=== PATIENT | female | born 1940 | race Caucasian/White ===

== ENCOUNTER 2016-05-15 10:08 | Inpatient (IN) | payer MEDICARE ==
[2016-05-15] VITALS (9 sets, daily range): BP systolic 124–148; BP diastolic 51–73; PULSE 62–81; RESP 10–18; O2SAT 92–100
[~2016-05-15] VITALS: Ht 154.9 cm; Wt 51.4 kg
[~2016-05-15 10:08] MED LIST: ALEN70TA2 PO; ASCO500C6 PO; ASPI-973 PO; ATEN25TA PO; CALC-685 PO; CHOL100045 PO; CYAN500 PO; Clindamycin 600 mg/50 mL D5W IV ONE; GINK120C PO; LISI-567 PO; LORA0.5T PO; Lactated Ringer's 1,000 ML IV ONE; MULT-1073 PO; NITR0.4T SL; PROC-4 PO; SIMV80TA4 PO; ZLP5T PO; [UNRECOGNIZED DRUG - CODE] PO; iron PO
[2016-05-15] MEDS ORDERED: Bupivacaine-MPF 0.5% 30 mL Inj INFILTRATE ONE (12:08)
[2016-05-15] MEDS ORDERED: Lactated Ringer's 500 ML IV PRN (13:38)
[2016-05-15] MEDS ORDERED: Lactated Ringer's 1,000 ML IV SCH (13:38)
--- NOTE | 2016-05-15 13:38 | PCM.HPANE ---
Patient Data Date of Service: May 15, 2016 Surgeon Admitting Provider: Attending Provider:Deshawn Faith MD Primary Care Physician:Kristian Girard MD Other Provider:Hui Will Anesthesia Reason for Visit Right Breast Cancer Ht/WT & BMI Height (Feet): 5 Height (Inches): 1 Weight (Kilograms): 51.4 Body Mass Index 21.00 Allergies Coded Allergies: Adhesives (Verified Allergy, Severe, BLISTERS, 12/27/15) Sulfa (Sulfonamide Antibiotics) (Verified Allergy, Severe, facial swelling , 12/27/15) bupropion (Verified Allergy, Severe, chest pain, 12/27/15) codeine (Verified Allergy, Severe, hives (OK WITH MORPHINE), 12/27/15) latex (Verified Allergy, Unknown, unknown, 12/27/15) nitrofurantoin (Verified Allergy, Unknown, unknown, 12/27/15) Macrolide Antibiotics (Verified Adverse Reaction, Severe, pt only tolerates, 12/27/15) Penicillins (Verified Adverse Reaction, Severe, shaking, 12/27/15) Uncoded Allergies: E-MYCIN ANTIBIOTICS (Adverse Reaction, Severe, pt only tolerates, 12/27/15) Past Anesthesia History Anesthesia History: Denies:: Abnormal Airway, Anesthesia Reactions, Difficult Intubation, Fam Anesthesia Reaction, Fam Malignant Hypertherm, Malignant Hyperthermia Diabetes History Hx Diabetes?: No Current Bedside Blood Glucose: 91 MRSA MRSA: No Medications Blood Thinner: Aspirin Hypertension Medication: Yes Home Meds Incl Beta Gaetano: Yes Date Beta Gaetano Taken: May 15, 2016 Time Beta Gaetano Taken: 0730 Reported Medications Ascorbic Acid (Vitamin C)500 Mg Capsule.er500 Mg PO DAILY 12/27/15 Multivits-Min/FA/Lycopene/Lut (Centrum Silver Tablet)1 Each Tablet1 Each PO DAILY 12/27/15 Aspirin 81 Mg Mflwoi91 Mg PO DAILY Ref 0 12/27/15 Lisinopril 20 Mg Bfjxkk08 Mg PO DAILY Ref 0 12/06/15 Nitroglycerin SL (Nitrostat)0.4 Mg Tab.subl0.4 Mg SL Q5MIN PRN For Chest Pain # 1 BOTTLE 08/13/14 Alendronate Sodium (Fosamax)70 Mg Uxjrae02 Mg PO QW 30 Days Ref 0 08/12/14 Garlic 300 Mg Eodius341 Mg PO DAILY 12/06/13 Ginkgo Biloba Extract (Ginkgo Biloba)120 Mg Uyeaqtq142 Mg PO DAILY 12/06/13 Cholecalciferol (Vitamin D3) (Vitamin D)1,000 Unit Capsule1,000 Unit PO DAILY # 1 BOTTLE Ref 0 12/06/13 Cyanocobalamin (Vitamin B12)1,000 Mcg Tablet1,000 Mcg PO DAILY 12/06/13 [iron] No Conflict Check27 Mg PO DAILY 12/06/13 Calcium Carb&Cit/D3/Phytostrol (Citracal D + Heart Health Tab)1 Each Tablet1 Each PO DAILY 12/06/13 Atenolol 25 Mg Dawlrl45.5 Mg PO DAILY #30 TABLET Ref 0 12/06/13 Simvastatin 80 Mg Pxkhgg64 Mg PO HS 30 Days Ref 0 12/06/13 Discontinued Reported Medications Zolpidem (Ambien)5 Mg Tablet5 Mg PO HS PRN For Insomnia Ref 0 01/19/16 Lorazepam 0.5 Mg Tablet0.5-1 Mg PO HS PRN For Insomnia Ref 0 01/07/16 Prochlorperazine Maleate (Compazine)10 Mg Glztni89 Mg PO q4hrs prn 01/07/16 History History of ENT Problems?: Yes HEENT History: Positive for:: Cataracts (bilateral) Hearing Problem Sinus Problem (current sinus issues during day, post nasal drip) Denies:: Abnormal Airway Difficult Intubation Dysphagia Glaucoma TMJ Denture Type: Full- Upper Full- Lower Hx of Heart Problems?: Yes Cardiovascular History: Positive for:: Chest Pain Heart Murmur (as a child Mod/severe MR per TTE) Hypertension Thrombophlebitis (HX OF LT LE DVT 2008) Denies:: AICD Atrial Fibrillation Cardiac Surgery Congestive Heart Failure Edema Irregular Heartbeat Pacemaker Valvular Heart Disease (echo 11/2015) Hx of Respiratory Problem?: Yes Respiratory History: Positive for:: COPD Pneumonia (quite a while) Denies:: Asthma Chest Surgery Cough Dyspnea (can walk - limited by leg pain) Emphysema Hemoptysis Oxygen Administration Tuberculosis Use of C-PAP Machine Use of Inhalers / NEBS Hx Neurologic Problems?: No Neurological History: Denies:: Alzheimer's Disease CVA Dementia Dizziness Headaches Multiple Sclerosis Parkinson's Disease Seizures Hx of GI Problems?: No Gastrointestinal History: Denies:: Cirrhosis Diverticulitis Gall Bladder Disease Gastroesphageal Reflux Gastrointestinal Bleeding Heartburn Hepatitis Hiatal Hernia Rectal Bleeding Hx of Problems?: Yes Genitourinary History: Positive for:: Kidney Stones (possible in past) Denies:: HX of Hemodialysis Urinary Tract Infection HX of Peritoneal Dialysis: No Female Hx: Positive for:: Problems with Breasts? (right breast ca current admission problem) Denies:: Currently Endometriosis Pelvic Inflammatory Skin History: Denies:: History Skin Disorders? Pressure Ulcers Hx Musculoskeletal Problems?: Yes Musculoskeletal History: Positive for:: Musculoskeletal Trauma (remote hx of orthopedic injury) Osteoarthritis ("little bit I think") Denies:: Back Injury Fibromyalgia Joint Replacement Myasthenia Gravis Hx of Psycho/Social Problems?: No Psycho Social History: Denies:: Anxiety Bipolar Disorder Hx Depression Suicide Attempt Hx Surgeries?: Yes (HYST/OOPH,APPY,RFA RT LEG,BILAT BREAST BX,TONSILS,CATARACTS ,YAG LASERS,EXC ) Hx Any Other Health Problems?: Yes Other History: Positive for:: Cancer (BCC, right breast cancer) Hospitalization Denies:: Endocrine Disease Thyroid Disease History Blood Transfusions: Positive for:: Accept Blood Products? Blood Transfusions Denies:: Blood Transfuse Reaction Hx Diabetes: NoBedside Blood Glucose: 91 Hx Alcohol Use: NoHx Substance Use: No Smoking Status: Current Some Day Smoker Light Tobacco Smoker Have You Smoked inLast 12 mo: Yes (1/2 pack daily) Stop/Bang Treated for Sleep Apnea?: No Do You Have a CPAP Machine?: No P-Blood Pressure: treated: Yes B- Body Mass Index > 35 kg/m2: No A- Age over 50: Yes N- Neck Large Circumference: No G- Gender Male: No SAEED Risk Assessment: Low Risk, <3 Yes Risk Assessment Category Category 1A: Patient has history of documented sleep apnea, and HAS NOT received any narcotic, sedative or anesthesia administration during this stay. Category 1B: Patient has history of documented sleep apnea, and HAS received any narcotic , sedative or anesthesia administration during this stay Category 2: Patient has SUSPECTED Obstructive Sleep Apnea, and HAS received any narcotic , sedative or anesthesia administration during this stay. Category 3: Patient has SUSPECTED Obstructive Sleep Apnea and HAS NOT received narcotic, sedative or anesthesia administration during this stay. Category 4: Outpatient in Procedural Areas with known sleep apnea or who screen positive for High Risk via the STOP/BANG questionnaire. Exam Exam Vital Signs Vital Signs Date Time Temp Pulse Resp B/P Pulse Ox O2 Delivery O2 Flow Rate FiO2 05/15/16 10:24 68 14 139/71 97 Room Air General Appearance: Alert, Oriented X3, Cooperative, No Acute Distress HEENT/AIRWAY: MP 2 (Upper, Lower plate), Neck Movement Lungs: Clear to Auscultation, Normal Air Movement Heart: Exam Unremarkable, Normal S1, Normal S2 (Systolic Murmur II/IV RLSB), Murmur Meds/Labs/Diagnostics Admission Meds Current Medications Lactated Ringer's 1,000 ml @ 120 mls/hr Q8H20M ONCE IV Last administered on 10:22; Start 05/15/16 at 05:00; Stop 05/15/16 at 13:19; Status DC Clindamycin Phosphate/ Dextrose/Premix (Cleocin Inj/IV Premix) 50 ml @ 100 mls/ hr PREOP ONCE IV Last administered on 05/15/16 12:00; Start 05/15/16 at 06:00 ; Stop 05/15/16 at 06:29; Status DC Bupivacaine HCl (Sensorcaine-MPF 0.5% Inj) 30 ml STK-MED ONCE INFILTRATE Last administered on 05/15/16 12:08; Start 05/15/16 at 12:08; Stop 05/15/16 at 12:09 ; Status DC Methylene Blue (Methylene Blue 1% Inj) 10 ml STK-MED ONCE IVPUSH Last administered on 05/15/16 12:31; Start 05/15/16 at 12:31; Stop 05/15/16 at 12:40 ; Status DC Bedside Blood Glucose: 91 Plan Impression Patient chart reviewed, patient interviewed and anesthestic plan with risks, benefits, and alternatives discussed, and informed consent obtained. NPO Status: 05/14/16 1930; ice tea at 0830 05/15/16 ASA Physical Status: ASA3 Severe Disease Anesthetic Plan: GA Bene/Risks/Altern/Consents: Yes HP Complete Prior to Induction: Yes Richy Orourke DO May 15, 2016 13:38
[2016-05-15] MEDS ORDERED: HYDROmorphone 1 mg/mL Inj IVPUSH PRN ×2 (13:40→14:20)
[2016-05-15] MEDS ORDERED: fentaNYL-PF 50 mCg/mL 2 mL Inj IVPUSH PRN (13:40)
[2016-05-15] MEDS ORDERED: Atropine 0.4 mg/mL Inj IVPUSH PRN (13:40)
[2016-05-15] MEDS ORDERED: Phenylephrine 10,000 mCg/mL Inj IVPUSH PRN (13:40)
[2016-05-15] MEDS ORDERED: Ondansetron 2 mg/mL 2 mL Inj IVPUSH PRN ×2 (13:40→14:20)
[2016-05-15] MEDS ORDERED: Dexamethasone 4 mg/mL Inj IVPUSH PRN (13:40)
[2016-05-15] MEDS ORDERED: MetoCLOpramide 5 mg/mL 2 mL Inj IVPUSH PRN ×2 (13:40→14:20)
[2016-05-15] MEDS ORDERED: EPHEDrine Sulfate 50 mg/mL Inj IVPUSH PRN (13:40)
[2016-05-15] MEDS ORDERED: Labetalol 5 mg/mL 4 mL Inj IV PRN (13:40)
[2016-05-15] MEDS ORDERED: Acetaminophen IV 1,000 MG in IV Premix 1 EACH IV PRN (14:20)
[2016-05-15] MEDS ORDERED: HYDROcodone-APAP 5-325 mg Tablet PO PRN (14:20)
[2016-05-15] MEDS ORDERED: Ketorolac 15 mg/mL Inj IVPUSH PRN (14:20)
[2016-05-15] MEDS ORDERED: Sodium Biphos-Phos 133 mL Enema RECTAL PRN (14:20)
--- NOTE | 2016-05-15 14:44 | PCM.ANEP1 ---
Post Anesthesia Phase 1 PACU Phase 1 Assessment Date of Service: May 15, 2016 Vital Signs Vital Signs Date Time Temp Pulse Resp B/P Pulse Ox O2 Delivery O2 Flow Rate FiO2 05/15/16 14:30 36.3 63 10 124/56 100 Simple Mask 8 05/15/16 10:24 68 14 139/71 97 Room Air Anesthetic Administered: GA Level of Alertness: Drowsy, not talking ARROYO's with Equal Strength: Yes Pain: No Nausea or Vomiting: No Oxygen Delivery: Simple Mask (6l) Lungs: Clear to Auscultation, Normal Air Movement Dermatome Level: Full Sensation Richy Orourke DO May 15, 2016 14:44
[2016-05-15] MEDS ORDERED: Dexamethasone 4 mg/mL Inj ONE (15:26)
[2016-05-15] MEDS ORDERED: Neostigmine 1 mg/mL 5 mL Inj ONE (15:26)
[2016-05-15] MEDS ORDERED: Rocuronium 10 mg/mL 5 mL Inj ONE (15:26)
[2016-05-15] MEDS ORDERED: Ondansetron 2 mg/mL 2 mL Inj ONE (15:26)
[2016-05-15] MEDS ORDERED: fentaNYL-PF 50 mCg/mL 2 mL Inj ONE (15:26)
[2016-05-15] MEDS ORDERED: Glycopyrrolate 0.2 mg/mL 5 mL Inj ONE (15:26)
[2016-05-15] MEDS ORDERED: Propofol 10,000 mCg/mL 20 mL Inj ONE (15:26)
[2016-05-15] MEDS: Dextrose 5% 0.9% NaCl 1,000 ML IV SCH (15:28)
--- NOTE | 2016-05-15 15:34 | NUR ---
ADMIT TO [facility]SC Patient arrived to rm 1019 on OR [facility], transferred over to hospital bed with 3 person assist via slide board. Patient is awake and alert, able to answer questions. SCD to left leg, BP done on right leg. Bilateral chest incisions well approximated with dermabond. 3 RENAY drains present, labeled them #1-3. Denies pain. IV line patent and IV's infusing. Ice tea given to patient. Denies nausea. Continue to monitor.
--- NOTE | 2016-05-15 15:51 | PCM.ANEP2 ---
Post Anesthesia Evaluation ASA/CMS Post Anesthesia Date of Service: May 15, 2016 VS in Patient's Normal Range?: Yes Resp Stable; Airway Patent?: Yes CV Function & Hydration Stable: Yes Mental Status Recovered?: Yes Pain control Satisfactory?: Yes N/V Control Satisfactory?: Yes Richy Orourke DO May 15, 2016 15:51
[2016-05-16 00:38] VITALS: BP 126/61; PULSE 84; RESP 20; O2SAT 93
--- NOTE | 2016-05-16 01:06 | OP ---
[address] [address] OPERATIVE REPORT PATIENT: BLANE CARRILLO : 1940 MR#: [id number] ADMIT: 05/15/2016 JOB ID: [id number] DATE OF SURGERY: 05/15/2016 PREOPERATIVE DIAGNOSIS(ES): Stage III right breast cancer. POSTOPERATIVE DIAGNOSIS(ES): Stage III right breast cancer. PROCEDURE: 1. Left simple mastectomy. 2. Right modified radical mastectomy. 3. Injection for reverse axillary lymph node mapping. SURGEON: Deshawn Faith MD. POOL MANAGER: eLna Anguiano PA-C. INDICATIONS: A 76-year-old female with stage III right breast cancer. She received neoadjuvant chemotherapy, which she has completed. She had post neoadjuvant biopsy of her lymph nodes which showed two positive nodes, and after discussing options with the patient, and at her request, she elected to have a right modified radical mastectomy and simultaneous left simple mastectomy. FINDINGS: There was no gross evidence of tumor in either breast. There was no gross abnormal right axillary nodes. No nodes were identified with methylene blue injection. DESCRIPTION OF PROCEDURE: At the beginning and end of the operation, the SCOAP checklist was completed. A general endotracheal anesthetic was induced. Both breasts and axilla and her right upper extremity were prepped with ChloraPrep and draped in usual fashion. She did receive preoperative antibiotics with clindamycin. The incisions were designed and every attempt to make them symmetric was done with careful measurements. The right simple mastectomy was done first. The superior, medial, inferior and lateral flaps were created using cautery and then the breast was dissected off of the pectoralis major. Perforators from the internal mammary artery were cauterized. Sutures were placed into the breast tissue for margin orientation. A 19-Iranian Hemaduct drain was placed through a separate stab wound, secured with 2-0 nylon. The skin was then closed with running subcuticular 4-0 Vicryl. While the skin was being closed, I injected 2 cc of methylene blue in the medial right upper arm, massaged it, and elevated the arm. This process went on for about 10 minutes while the left breast wound was closed. The skin incision was then made and then the superior, medial, inferior and lateral flaps were created with cautery, and dissection was carried down to the chest wall. The breast was dissected off the pectoralis major. Identifying the lateral margins of the pectoralis major and minor I followed those out into the axilla and also continued to dissect out laterally and superficially into the axilla. The axillary vein was identified. The long thoracic nerve was identified. I actually did not identify the thoracodorsal nerve. As stated above, there was no evidence of metastases. Using the LigaSure, I divided the axillary tissue and it was dissected free, and was submitted together with the breast tissue. Sutures were placed in the right breast and axillary tissue for orientation. Hemostasis in the wound was ensured. The wound was irrigated with saline. Two 19-Iranian Hemaduct drains were placed through separate stab wound, secured with 2-0 nylon. The skin was closed with running subcuticular 4-0 Vicryl. Dermabond was placed to both incisions. Estimated blood loss 25 cc. No apparent complications. The final sponge, needle and instrument counts were announced as correct and she was returned to recovery in stable condition. Critical assistance was provided by Lena Anguiano PA-C.
[2016-05-16] MEDS: Dextrose 5% 0.9% NaCl 1,000 ML IV SCH (04:56)
[2016-05-16 05:05] VITALS: BP 143/59; PULSE 81; RESP 20; O2SAT 94
[2016-05-16 06:44] LABS: Mean Corpuscular Hemoglobin 28.8 pg (27.0-35.0); Mean Corpuscular Volume 89.4 fL (81-100)
--- NOTE | 2016-05-16 07:20 | NUR ---
Activity Pt ambulates to BR this shift without complications. 3 drains are intact, dressings CDI. Pt reports pain relief from toradol, IV apap given as well. IVF infusing D5NS at 75 ml/h. Needs UA sent- missed hat this shift. Bruise noted to R underarm- r/t dye and lymph dissection. SCD on bilaterally, BP in RLE only. Care continues
--- NOTE | 2016-05-16 09:20 | PROG NOTE ---
[address] [address] PROGRESS NOTE PATIENT: BLANE CARRILLO : 1940 MR#: [id number] ADMIT: 05/15/2016 JOB ID: [id number] DATE: 05/16/2016 SUBJECTIVE: Postoperative day one following bilateral mastectomy, simple on the left and modified radical on the right. I did reverse axillary mapping without identification of any nodes. Her primary complaint is the injection site of the dye but does complaints are actually minimal. She has minimal to no pain on her chest wall. PHYSICAL EXAMINATION: Alert, in no distress. Temperature 36.8, brachial blood pressure 143/59, pulse 81, respiratory rate 20, O2 sat on room air 94%. Her incisions are healing well, look very symmetric. Shon-Gracia drains show serosanguineous fluid, each putting out about 20 cc the last 8 hours. LABORATORY RESULTS: White count 5.7, hematocrit 34.5. Electrolytes are normal. Glucose 143. IMPRESSION: Doing well. PLAN: 1. Stop IV Tylenol. 2. Order oral Tylenol. 3. Discontinue IV. 4. Physical therapy evaluation and instruction today. 5. Possible discharge to home later today.
[2016-05-16 12:41] VITALS: BP 159/76; PULSE 72; RESP 16; O2SAT 99
--- NOTE | 2016-05-16 13:41 | PCM.PNSURG ---
Subjective Date of Service: May 16, 2016 Date of Service: May 16, 2016 Visit Information: Reason for Visit Right Breast Cancer Surgery/Surgery Date Post-Op Day # Date of Admission: May 15, 2016 at 15:25 Hospital Day # Subjective: Patient was seen in surgical follow-up, POD#1 s/p Right MRM with axillary dissection and left simple mastectomy. She is doing well and was seen by Dr. Faith earlier this AM. She has since worked with PT and she and her daughter feel that she is ready for discharge to home. Pain meds were written for by Dr. Faith this AM. I discussed discharge with pt and daughter and answered questions. Postop General: No Complaints Gastrointestinal: Tolerating Oral Feedings Pain Management: Good Pain Control Objective Objective pleasant elderly woman in NAD with daughter at bedside Vital Sign- Last 8 Hours Date Time Temp Pulse Resp B/P Pulse Ox O2 Delivery O2 Flow Rate FiO2 05/16/16 12:41 37.3 72 16 159/76 99 Room Air Intake and Output- Last 8 Hour 05/16/16 Cumulative From/Thru 07:00 05/12/16 10:51 - 05/16/16 06:38 Intake Total 1721 ml 3318 ml Output Total 270 ml 625 ml Balance 1451 ml 2693 ml Intake Oral 700 ml 1100 ml IV Total 1021 ml 2218 ml Output Urine Total 200 ml 450 ml Drainage Total 70 ml 150 ml Estimated Blood Loss 25 ml # Voids 3 3 General: Alert, Oriented X3, Cooperative, No Acute Distress Heart: Regular Rate/Rhythm Chest: L chest - mastectomy incision looks good with dermabond in place, some expectant ecchymosis, drain in place - serosang drainage, <30 ml thus far R chest - incision looks good without erythema, some ecchymosis, [address] with serosang drainage noted - <30ml thus far Result Diagram: 05/16/16 0625 05/16/16 0625 Assessment & Plan Impression 76 yo POD 1 s/p right MR mastectomy and axillary dissection and simple left mastectomy who is doing well and ready for discharge to home. Problems: Plan D/C home Encourage PT exercises at home Nurse teaching for drains at home F/u with Dr. Faith in 7-10 days or when drains are putting out <30ml/24hrs Pain meds PRN Pain Management: Kari Helton PAC May 16, 2016 13:41
--- NOTE | 2016-05-16 13:47 | PCM.DISURG ---
Surgical Discharge Instruction Date of Service May 16, 2016 Dates of Hospitalization Date of Hospital Admission May 15, 2016 at 15:25 Providers Admitting Physician: Deshawn Faith MD Primary Care Physician: Kristian Girard MD Attending Physician: Deshawn Faith MD Diet Discharge Diet: No restrictions Activity Discharge Activity-General: Try not to overdue, No driving while taking narcotic, Other (PLEASE REVIEW PT EXCERCISES AND LIMITATIONS FROM CONSULTATION) Dressing and Incisional Care Dressing Care: Keep dressing clean, dry & intact, Change soiled dressing, Remove dressing in (2-3 days, may reapply dressing around drain if needed; Dermabound over surgical insicion will eventually peel off - avoid pulling it off) Hygiene: May shower (pat incision dry after), DO NOT soak incision under water Additional Instructions Discharge Instructions Call office with any questions for concerns, Follow Up Plan Follow-up Provider (F9): Deshawn Faith MD Follow-up appointment: Days (7-10) Call your provider for: Fever, Chills, Shortness of breath, Wound redness, Increasing wound pain, Warmth to touch, Discharge @ incision, pus discharge Kari Mcdonough PAC May 16, 2016 13:47
--- NOTE | 2016-05-16 16:11 | NUR ---
Social Work: Initial Assessment/Discharge Data: See Initial Assessment. Pt is a 76 year old female admitted 05/15/16 for right breast cancer per H&P. Pt's insurance is Medicare and [employer] [place]. Patient is in the process of switching PCPs. EMR reviewed. SW met with pt at bedside to discuss discharge planning, SW role explained. Pt is alert and oriented x3. Pt resides home alone in [place] where she remains independent with her ADLs. Pt does not use any DME and does drive. Pt has orthopaedic technologist with HH or SNF. PT cleared pt for home, no needs. Pt has supplies for wound dressing, confident in her ability to manage this. Pt has DPOA/Advance Directive on file. DPOA is Agueda Godinez [phone]. Pt's daughter Agueda to provide transport at discharge. No discharge needs. Assessment: Pt who is independent at base. Plan: Pt to discharge home today with daughter to transport. No anticipated discharge needs. Pt to manage own wound care. All updated and agreeable to plan. JESSEE Lamb Addendum: 05/16/16 at 1620 by DUSTY RODRIGUEZ SS Amended: Links added.
--- NOTE | 2016-05-16 16:22 | NUR ---
spiritual care: pt request conversational visit. pt in good spirits, antcipating discharge. dtr in room, supportive. pt shared personal history, coping and hopes that accompany her through the last of cancer treatment. pt explored sources of her strength/resiliency including family, goals, including love of country western music and dancing as well as her blaise. pt participated in prayer.
--- NOTE | 2016-05-16 18:43 | NUR ---
Pt D/C'd Pt D/C'd home via wheelchair with daughter at 1545. Hard copy of prescription with pt, all pt belongings removed from room by pt daughter. Wound care and RENAY drain instructions/demonstration given to pt and daughter, pt returned demonstration. Pt sent with wound care supplies and verbalized/signed understanding of discharge information and follow up care. Pt stated she had no pain upon time of departure. IV D/C'd intact.
--- NOTE | 2016-05-18 13:26 | PATH ---
SURGICAL PATHOLOGY Attending Physician:Luis Chaparro CASE STATUS: Signed Out PATIENT NAME: BLANE CARRILLO PID: [id number] : 1940 DATE COLLECTED:05/15/2016 22:36 SPECIMEN: 1: Breast, Simple Mastectomy (w/o lymph nodes) 2: Breast, Modified Radical Mastectomy (including lymph nodes) CLINICAL HISTORY: RIGHT BREAST CANCER 1). LEFT BREAST, OUT 12:55 TIF 13:02, SHORT STITCH SUPERIOR, LONG LATERAL 2). RIGHT BREAST OUT 14:03 TIF?, SHORT STITCH INFERIOR, LONG STITCH AXILLARY TAIL FINAL DIAGNOSIS: 1.LEFT SIMPLE MASTECTOMY SPECIMEN: NEGATIVE FOR MALIGNANCY AND SIGNIFICANT ATYPIA. 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 (SEE SURGICAL PATHOLOGY CANCER CASE SUMMARY BELOW): ICD10 CODEC50.119 CAP CANCER CASE SUMMARY Ductal carcinoma in situ of the breast: Procedure: RADICAL MASTECTOMY Lymph node sampling: AXILLARY DISSECTION, INCLUDING BLUE-STAINED APPARENT SENTINEL LYMPH NODE Specimen laterality: RIGHT Tumor site: 6 O' CLOCK Size (Extent) of DCIS: 1.0 CM MEASURED ON THE SLIDE Number of blocks with DCIS: TWO Histologic type: DUCTAL CARCINOMA IN SITU Architectural patterns: COMEDO AND CRIBRIFORM Nuclear grade: 3, HIGH Necrosis: PRESENT, CENTRAL Microcalicifications: PRESENT IN DCIS AND IN NON-NEOPLASTIC TISSUE Margins: ALL MARGINS GREATER THAN 1.0 CM Treatment effect: Response to Presurgical Therapy: NO RESIDUAL INVASIVE CARCINOMA IDENTIFIED (SEE PREVIOUS NEEDLE BIOPSY ([phone]) Lymph nodes Total number of nodes examined: 15 (SENTINEL AND NON-SENTINEL) Number of sentinel nodes examined: 1 Lymph Node Involvement: Number of lymph nodes with macrometastases: 0 Number of lymph nodes with micrometastases: 3, THE SIZE OF THE LARGEST DEPOSIT IS 1 MM Extranodal Extension: NOT IDENTIFIED Method of Evaluation of [place] Lymph Node: H&E SERIAL SECTIONS PATHOLOGIC STAGING: AJCC, 7th ed., 2010 PRIMARY TUMOR: ypTis (DCIS) REGIONAL LYMPH NODES: ypN1mi GROSS DESCRIPTION: The specimens are received in formalin, labeled with the patient's name, and sublabeled as the following: (1) left breast, long lat, short sup; (2) right breast & axillary tail. (1) The specimen consists of a left breast (3.2 cm AP, 8.4 cm SI, 12.0 cm ML) partially covered by an ellipse of skin (3.6 cm SI, 11.0 cm ML) with nipple/areola complex (2.5 x 2.3 cm). The axillary tail is absent. The specimen is oriented with 2 black sutures (short-superior, long-lateral). The breast tissue is fibrofatty with no nodules, masses or lesions identified. The skin and nipple/areola complex are cleaning and unremarkable. Ink code: purple-anterior; yellow-posterior; black-superior; orange-inferior; green-medial; blue-lateral. Section code: (1A) nipple; (1B) skin; (1C, 1D) upper outer quadrant; (1E, 1F) lower outer quadrant; (1G, 1H) upper inner quadrant; (1I, 1J) lower inner quadrant. Note: Approximate total fixation time in formalin-30 hours of 30 minutes calculated using a collection date of May 15, 2016 with a time in fixative of 1403. (2) The specimen consists of a right breast (3.0 cm AP, 10.5 cm SI, 10.5 cm ML) partially covered by an ellipse of skin (3.7 cm SI, 10.2 cm ML) with nipple/areola complex (2.5 x 2.5 cm). The axillary tail (9.8 x 5.6 x 2.0 cm) is attached. The specimen is oriented with 2 black sutures (short-inferior, long-axillary tail). The breast tissue is fibrofatty with no nodules, masses or lesions identified. The skin and nipple/areola complex are cleaning and unremarkable. Multiple possible lymph nodes (0.1 x 0.1 x 0.1 cm-1.7 x 1.4 x 0.6 cm) are identified within the axillary tail. The largest lymph node is received partially stained blue. Ink code: purple-anterior; yellow-posterior; black-superior; orange-inferior; green-medial; blue-lateral. Section code: (2A) nipple; (2B) skin; (2C) medial resection margin, perpendicularly sectioned, sales representative meats; (2D-2K) breast tissue, serially sectioned and submitted ML, sales representative meats; (2M) lateral resection margin, perpendicularly sectioned, sales representative meats; (2N) multiple intact lymph nodes ; (2O-2R) one lymph node in each cassette, bisected; (2S-2T) one blue stained lymph node, serially sectioned. Note: Approximate total fixation time in formalin-29 hours and 30 minutes calculated using a collection date of May 15, 2016 with a collection time of 1403. 05/16/16 VALERIE Additional sections: (2U-2GG) breast tissue, sales representative meats, from, thje 6 0' clock position. 05/17/16 VALERIE MICRO DESCRIPTION: See diagnosis. ICD-9 CODES: CPT CODES: 1: 56745 2: 58916 Electronically Signed Out Butch Sanchez MD [facility] [address], [place] [address] Technical component performed at [facility], [facility] [address], [place], [address]
--- NOTE | 2016-06-13 08:11 | PCM.DC.SUR ---
Discharge Summary Date of Hospital Admission: May 15, 2016 at 15:25 Date of Operation(s): 05/15/2016 Date of Discharge: 05/16/2016 Diagnosis at Time of Discharge Stage III Right breast cancer Problems: Operation 1. Left simple mastectomy. 2. Right modified radical mastectomy. 3. Injection for reverse axillary lymph node mapping. Brief History and Physical: Patient a 76-year-old female with stage III right breast cancer. She received neoadjuvant chemotherapy, which she has completed. She had post neoadjuvant biopsy of her lymph nodes which showed two positive nodes, and after discussing options with the patient, and at her request, she elected to have a right modified radical mastectomy and simultaneous left simple mastectomy. Hospital Course: Patient was admitted and underwent the above mentioned operation without complication. On post op day 1, she was doing well, had worked with Physical Therapy, was given instructions on drain care management (with her daughter) and was felt to be ready for discharge to home with follow-up in the surgery department in 7-10 days. Her pain was well controlled with minimal narcotics. Her vital signs were stable and she was voiding without issues. She was medically and surgically stable and ready for discharge to home without her daughter. Pathology: 1.LEFT SIMPLE MASTECTOMY SPECIMEN: NEGATIVE FOR MALIGNANCY AND SIGNIFICANT ATYPIA. 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 (SEE SURGICAL PATHOLOGY Disposition: Discharge to home with her daughter Follow-up Plan: Follow-up with Kari Mcdonough PA-C in 7-10 days ([iron]) 27 MG PO DAILY (Reported) Alendronate Sodium (Fosamax) 70 Mg Tablet 70 MG PO QW (Reported) Ascorbic Acid (Vitamin C) 500 Mg Capsule.er 500 MG PO DAILY (Reported) Aspirin (Aspirin) 81 Mg Tablet 81 MG PO DAILY (Reported) Atenolol (Atenolol) 25 Mg Tablet 12.5 MG PO DAILY (Reported) Calcium Carb&Cit/D3/Phytostrol (Citracal D + Heart Health Tab) 1 Each Tablet 1 EACH PO DAILY (Reported) Cholecalciferol (Vitamin D3) (Vitamin D) 1,000 Unit Capsule 1,000 UNIT PO DAILY (Reported) Cyanocobalamin (Vitamin B12) 1,000 Mcg Tablet 1,000 MCG PO DAILY (Reported) Garlic (Garlic) 300 Mg Tablet 300 MG PO DAILY (Reported) Ginkgo Biloba Extract (Ginkgo Biloba) 120 Mg Capsule 120 MG PO DAILY (Reported) Lisinopril (Lisinopril) 20 Mg Tablet 20 MG PO DAILY (Reported) Multivits-Min/FA/Lycopene/Lut (Centrum Silver Tablet) 1 Each Tablet 1 EACH PO DAILY (Reported) Nitroglycerin SL (Nitrostat) 0.4 Mg Tab.subl 0.4 MG SL Q5MIN PRN PRN For Chest Pain (Reported) Simvastatin (Simvastatin) 80 Mg Tablet 80 MG PO HS (Reported) Kari Mcdonough PAC Jun 13, 2016 08:11
[2016-06-15] MEDS ORDERED: LORA0.5T PO (16:33)
[2016-08-25] MEDS ORDERED: [UNRECOGNIZED DRUG - CODE] (08:52)
[2016-08-25] MEDS ORDERED: TURKEY TAIL (08:53)
== END 2016-05-16 14:03 | disposition home or self-care (01) | DRG 583 ==
LOC: SAS 10:08 → OSC 15:25
PROVIDERS: ADMIT Surgery; ATTEND Surgery
PROC: 0HTT0ZZ Resection of Right Breast, Open Approach (ICD-10-PCS; 2016-05-15)
PROC: 07T50ZZ Resection of Right Axillary Lymphatic, Open Approach (ICD-10-PCS; 2016-05-15)
PROC: 0HTU0ZZ Resection of Left Breast, Open Approach (ICD-10-PCS; principal; 2016-05-15 12:30)
DX: C50.911 Malignant neoplasm of unspecified site of right female breast (principal); F17.200 Nicotine dependence, unspecified, uncomplicated; I10 Essential (primary) hypertension; Z79.82 Long term (current) use of aspirin

== ENCOUNTER 2016-06-16 10:34 | Day surgery (SDC) | payer MEDICARE ==
[~2016-06-16] VITALS: Ht 154.9 cm; Wt 53.0 kg
[~2016-06-16 10:34] MED LIST changes: +0.9% Sodium Chloride 1,000 ML IV SCH; -Clindamycin 600 mg/50 mL D5W IV ONE; -Lactated Ringer's 1,000 ML IV ONE; -PROC-4 PO; +Sodium Chloride LOK Flush 10 mL Syringe IV PRN; -ZLP5T PO; +fentaNYL-PF 50 mCg/mL 2 mL Inj IVPUSH PRN
[2016-06-16] MEDS ORDERED: DOXY100C2 PO (11:06)
[2016-06-16 11:09] VITALS: BP 121/80; PULSE 75; RESP 17; O2SAT 98
[2016-06-16 12:17] VITALS: BP 102/47; PULSE 77; RESP 16; O2SAT 96
[2016-06-16 12:27] VITALS: BP 112/51; PULSE 74; RESP 16; O2SAT 96
[2016-06-16 12:36] VITALS: PULSE 75; RESP 16; O2SAT 96
[2016-06-16 12:46] VITALS: BP 109/51; PULSE 85; RESP 16; O2SAT 95
--- NOTE | 2016-06-16 20:34 | ENDO ---
[address] [address] ENDOSCOPY PROCEDURE PATIENT: BLANE CARRILLO : 1940 MR#: [id number] ADMIT: 06/16/2016 JOB ID: [id number] TYPE OF OPERATION: Colonoscopy. PREOPERATIVE DIAGNOSIS: Blood in the stool. POSTOPERATIVE DIAGNOSIS(ES): 1. Moderate sigmoid diverticulosis. 2. Small internal hemorrhoids. ANESTHESIA: Fentanyl 50 mcg, Versed 2 mg IV administered. COMPLICATIONS: None. BLOOD LOSS: Minimal. DESCRIPTION OF PROCEDURE: After risks and benefits explained to the patient, informed consent was obtained. After anesthesia administered, colonoscope was inserted through the rectum to the cecum. Mucosa carefully examined. Prep of the patient was fair. After the procedure was done, the scope withdrawn, procedure terminated. FINDINGS: Upon inspection of the anus, no masses, hemorrhoids, ulcers, or fissures that were seen. Throughout the entire examination, there was mild sigmoid diverticulosis. No polyps or masses were seen. Retroflexion showed small internal hemorrhoids. IMPRESSION: 1. Small internal hemorrhoids. 2. Moderate sigmoid diverticulosis. RECOMMENDATIONS: High-fiber diet. Follow up in GI clinic as needed.
[2016-08-25] MEDS ORDERED: [UNRECOGNIZED DRUG - CODE] (08:52)
[2016-08-25] MEDS ORDERED: TURKEY TAIL (08:53)
== END 2016-06-16 23:59 | disposition home or self-care (01) ==
LOC: END 10:34
PROVIDERS: ATTEND Internal Medicine Gastroenterology
DX: K64.8 Other hemorrhoids (principal); K57.30 Diverticulosis of large intestine without perforation or abscess without bleeding; I25.10 Atherosclerotic heart disease of native coronary artery without angina pectoris; E78.5 Hyperlipidemia, unspecified; I10 Essential (primary) hypertension; K22.2 Esophageal obstruction; J44.9 Chronic obstructive pulmonary disease, unspecified; Z85.3 Personal history of malignant neoplasm of breast; Z86.010 Personal history of colon polyps; Z79.82 Long term (current) use of aspirin
CPT/HCPCS: 45378; G0500; J7030

== ENCOUNTER 2016-09-08 18:37 | Emergency (ER) | payer MEDICARE ==
[~2016-09-08] VITALS: Ht 154.9 cm; Wt 50.9 kg
[~2016-09-08 18:37] MED LIST changes: -0.9% Sodium Chloride 1,000 ML IV SCH; -NITR0.4T SL; -Sodium Chloride LOK Flush 10 mL Syringe IV PRN; +TURKEY TAIL; +[UNRECOGNIZED DRUG - CODE]; -fentaNYL-PF 50 mCg/mL 2 mL Inj IVPUSH PRN
[2016-09-08 18:40] VITALS: BP 139/69; PULSE 78; RESP 16; O2SAT 99
[2016-09-08 19:36] LABS: BASOPHILS % (AUTO) 0 % (0-3); EOSINOPHILS % (AUTO) 0.6 % (0-5); MONOCYTES % (AUTO) 6.8 % (4-12); Mean Corpuscular Hemoglobin 29.5 pg (27.0-35.0); Mean Corpuscular Volume 89.9 fL (81-100); NEUTROPHILS % (AUTO) 70.6 % (40-74); Platelet Count 145 bil/L (150-400)
--- NOTE | 2016-09-08 19:42 | ED.REPORT ---
HPI-General Illness Date of Service Sep 08, 2016 ED Provider: Ziyad Valera MD A 76 year old female with a history of hemorrhoid, hypertension, rectal bleed, breast cancer and recent colonoscopy presents to the ED complaining of blood in her stool. The pt noticed bright red blood in the toilet and on the toilet paper when she had a bowel movement this evening. She has not had a bowel movement since and denies abdominal pain, nausea, vomiting, diarrhea, fever or chills. The pt experienced similar symptoms in 05/2016 and had a colonoscopy, which showed internal hemorrhoids. The pt recently began taking a new anti- estrogen medication. Nursing Notes Stated Complaint: BLEEDING DURING BOWEL MOVEMENTS Chief Complaint: General Complaint Nursing Notes Reviewed: Yes Allergies: Coded Allergies: Adhesives (Verified Allergy, Severe, BLISTERS, 09/08/16) Sulfa (Sulfonamide Antibiotics) (Verified Allergy, Severe, facial swelling , 09/08/16) bupropion (Verified Allergy, Severe, chest pain, 09/08/16) codeine (Verified Allergy, Severe, hives (OK WITH MORPHINE), 09/08/16) latex (Verified Allergy, Unknown, unknown, 09/08/16) nitrofurantoin (Verified Allergy, Unknown, unknown, 09/08/16) Macrolide Antibiotics (Verified Adverse Reaction, Severe, pt only tolerates, 09/08/16) Penicillins (Verified Adverse Reaction, Severe, shaking, 09/08/16) Uncoded Allergies: E-MYCIN ANTIBIOTICS (Adverse Reaction, Severe, pt only tolerates, 12/27/15) Scheduled ([iron]) 27 MG PO DAILY Alendronate Sodium (Fosamax) 70 Mg Tablet 70 MG PO QW Ascorbic Acid (Vitamin C) 500 Mg Capsule.er 500 MG PO DAILY Aspirin (Aspirin) 81 Mg Tablet 81 MG PO DAILY Atenolol (Atenolol) 25 Mg Tablet 12.5 MG PO DAILY Calcium Carb&Cit/D3/Phytostrol (Citracal D + Heart Health Tab) 1 Each Tablet 1 EACH PO DAILY Cholecalciferol (Vitamin D3) (Vitamin D) 1,000 Unit Capsule 1,000 UNIT PO DAILY Cyanocobalamin (Vitamin B12) 1,000 Mcg Tablet 1,000 MCG PO DAILY Garlic (Garlic) 300 Mg Tablet 300 MG PO DAILY Ginkgo Biloba Extract (Ginkgo Biloba) 120 Mg Capsule 120 MG PO DAILY Lisinopril (Lisinopril) 20 Mg Tablet 20 MG PO DAILY Multivits-Min/FA/Lycopene/Lut (Centrum Silver Tablet) 1 Each Tablet 1 EACH PO DAILY Simvastatin (Simvastatin) 80 Mg Tablet 80 MG PO HS General Time Seen by MD: 19:42 Chief Complaint Other (Blood in stool) Hx Obtained From: Patient Arrived By: Walk-in Sudden in Onset?: Yes Onset Occurred: 1 - 4 hours ago Recent Healthcare: Recent doctor visit, Recent hospitalization Similar Sx Previous: Yes Past Medical History Past Medical History heart murmur hypertension pneumonia hemorrhoid kidney stones rectal bleed breast cancer Past Surgical History oophorectomy RFA right leg bilateral breast BX Reports: Appendectomy, Cataract surgery, Hysterectomy, Tonsillectomy Smoking History Current Some Day Smoker, Light Tobacco Smoker Social History Other Social History: Good social support Ambulatory Status Independent Review of Systems bright red blood in stool Full Review of Systems Constitutional: Denies: Chills, Fever Respiratory: Denies: Non-productive cough, Shortness of breath Cardiovascular: Denies: Chest pain GI: Denies: Abdominal pain, Diarrhea, Nausea, Vomiting Musculoskeletal: Denies: Back pain, Neck pain Skin: Denies Rash Complete sys rev & neg: except as marked. Physical Exam Constitutional: Well-developed, well-nourished. Not diaphoretic. Head: Normocephalic and atraumatic. Mouth/Throat: Oropharynx is clear and moist. No oropharyngeal exudate. Eyes: EOM are normal. Pupils are equal, round, and reactive to light. Neck: Supple, no tracheal deviation. Cardiovascular: Normal rate, regular rhythm. Equal and intact distal pulses throughout. Pulmonary/Chest: Effort normal and breath sounds normal. No respiratory distress. Abdominal: Soft. No distension. There is no tenderness, rebound, or guarding. Bowel sounds present. Rectum: No external hemorrhoids or active bleeding. Stool in rectal vault. Heme occult positive. Musculoskeletal: Range of motion grossly intact, moving all extremities. No edema or tenderness appreciated. Neurological: AOx3. Grossly nonfocal exam. Strength and sensation intact and equal to bilateral upper and lower extremities. Skin: Warm and dry, no rashes or pallor appreciated. Psychiatric: Appropriate mood and affect. Behavior appears normal. Vital Signs Vital Signs Date Time Temp Pulse Resp B/P Pulse Ox O2 Delivery O2 Flow Rate FiO2 09/08/16 22:12 18 122/53 97 Room Air 09/08/16 18:40 36.5 78 16 139/69 99 Room Air Initial VS: Reviewed Interpretation & Diagnostics Lab Results Interpretation Result Diagram: 09/08/16211909/08/166 Test 09/08/16 19:16 09/08/16 21:20 Neutrophils (%) (Auto) 70.6% (40-74) Lymphocytes (%) (Auto) 21.7% (14-46) Monocytes (%) (Auto) 6.8% (4-12) Eosinophils (%) (Auto) 0.6% (0-5) Basophils (%) (Auto) 0% (0-3) Sodium Level 140mEq/L (134-144) Potassium Level 4.4mEq/L (3.5-5.2) Chloride Level 102mEq/L (97-108) Carbon Dioxide Level 26mmol/L (18-29) Blood Urea Nitrogen 16mg/dL (8-27) Creatinine 0.85mg/dL (0.57-1.00) Estimat Glomerular Filtration Rate 93mL/min (>59) Glucose Level 100mg/dL (60-99) Calcium Level 9.1mg/dL (8.5-10.1) Total Bilirubin 0.4mg/dL (0.0-1.2) Aspartate Amino Transf (AST/SGOT) 25U/L (0-50) Alanine Aminotransferase (ALT/SGPT) 12U/L (0-32) Alkaline Phosphatase 47U/L (25-165) Total Protein 7.0g/dL (6.4-8.4) Albumin 4.2g/dL (3.4-5.0) Hold Hernández Top Tube Received (Received) White Blood Count 3.3th/mm3 (3.8-10.1) Red Blood Count 3.87mil/mm3 (3.90-5.20) Hemoglobin 11.4g/dL (12.0-15.6) Hematocrit 34.8% (35.0-46.0) Mean Corpuscular Volume 89.9fL (81-100) Mean Corpuscular Hemoglobin 29.5pg (27.0-35.0) Mean Corpuscular Hemoglobin Concent 32.8% (32.0-37.0) Red Cell Distribution Width 14.1% (12.3-15.4) Platelet Count 135bil/L (150-400) Re-Eval/Medical Decision Med Decision/Clinical Course Abdominal pain or tenderness. Hemodynamic stable here in the ED. Her hemoglobin does seem to be trending downwards, however she is stable and the changes only minimal. Given this, after discussion with the patient, reasonable to discharge home with careful return precautions, follow-up on Sunday for repeat blood work and follow up with her PCP. Patient agreeable to the plan as stated, no further questions. Source of Hx: Old records Time of Eval: 20:52 Patient Status: Condition improved Re-Evaluation/Progress Note: Pt rechecked, who is comfortable. Further physical exam is performed. The plan for GI consult is discussed. Time of Eval: 22:05 Patient Status: Condition improved Re-Evaluation/Progress Note: Pt rechecked, who is resting. The diagnosis and plan for discharge pending normal labs are discussed. The pt understands and agrees with the plan. All questions are addressed at this time. Consultation #1: Referral / Consult Name: Raymundo Colby MD Call Returned at: 21:14 Note: Consulted with Dr. Colby, GI, regarding pt's case. Dr. Colby recommends repeat CBC and discharge with close follow up if this is stable. Consultation #2: Referral / Consult Name: Raymundo Colby MD Call Returned at: 22:13 Note: Consulted with Dr. Colby, who is updated on the pt's condition. Dr. Colby agrees with the plan for discharge. Counseled Regarding: Diagnosis, Lab results, Need for follow-up, When/why to return to ED Discharge & Departure Primary Impression: Blood in stool Disposition: Home Discharge Condition All VS Reviewed: Yes Condition: Stable Patient Instructions: Hemorrhoids (ED), Rectal Bleeding (ED) Additional Instructions: Thank you for allowing us to be a part of your care. As we discussed, your hemoglobin (blood level) is a little bit lower when we repeated your labs, however given that you're no longer bleeding and you feel fine, I think it's ok for you to go home now. However, please return if you have any more bleeding, you feel lightheaded, or if there's anything else of concern to you. Call to arrange a follow up appointment with your primary care physician on Sunday for further evaluation. Return to the emergency department if you develop any new or worsening symptoms including dizziness, lightheadedness, weakness or worsening bleeding. Referrals: Soraida Cross MD (PCP) Raymundo Colby MD Attestation Portions of this note were transcribed by Zackery Woodson. I, Dr. Valera personally performed the history, physical exam and medical decision-making; I reviewed and confirmed the accuracy of the information in the transcribed note. Signed by: Mahamed Candelaria, 09/08/2016 and 2226. copies to: Raymundo Colby MD; Soraida Cross MD, William B MD Sep 08, 2016 19:42 ZACKERY WOODSON Sep 08, 2016 20:43
[2016-09-08] MEDS ORDERED: levoFLOXacin Inj 750 MG in IV Premix 1 EACH IV ONE (21:25)
[2016-09-08 21:39] LABS: Mean Corpuscular Hemoglobin 29.5 pg (27.0-35.0); Mean Corpuscular Volume 89.9 fL (81-100)
[2016-09-08 22:12] VITALS: BP 122/53; RESP 18; O2SAT 97
== END 2016-09-08 22:24 | disposition home or self-care (01) ==
LOC: SED 18:37
DX: K92.1 Melena (principal); I10 Essential (primary) hypertension; F17.200 Nicotine dependence, unspecified, uncomplicated; Z79.82 Long term (current) use of aspirin; Z88.0 Allergy status to penicillin; Z88.1 Allergy status to other antibiotic agents; Z88.2 Allergy status to sulfonamides; Z88.5 Allergy status to narcotic agent; Z88.8 Allergy status to other drugs, medicaments and biological substances; Z91.040 Latex allergy status; Z91.048 Other nonmedicinal substance allergy status

== ENCOUNTER 2016-09-09 09:17 | Inpatient (IN) | payer MEDICARE ==
[2016-09-09] VITALS (9 sets, daily range): BP systolic 115–152; BP diastolic 56–81; PULSE 14–73; RESP 13–17; O2SAT 95–100
[~2016-09-09] VITALS: Ht 154.9 cm; Wt 50.5 kg
--- NOTE | 2016-09-09 09:48 | ED.REPORT ---
HPI-General Illness Date of Service Sep 09, 2016 ED Provider: Ziyad Valera MD A 76 year old female with a history of hemorrhoids, hypertension, rectal bleeding, breast cancer and recent colonoscopy presents to the ED complaining of persistent blood in her stool that began this morning. Patient reports bright red blood clots in her stool and blood in the toilet. She reports excessive flatulence and recent small BM. She was seen in the ED on 09/08 for identical symptoms. Patient received lab work and was discharged in good condition with plan to follow up with her PCP. She presents today because of continued bleeding. Patient denies any lightheadedness, chest pain, SOB, abdominal pain or changes in symptoms from last night. Nursing Notes Stated Complaint: BLOOD IN STOOL Chief Complaint: Female Abdominal Pain Nursing Notes Reviewed: Yes Allergies: Coded Allergies: Adhesives (Verified Allergy, Severe, BLISTERS, 09/08/16) Sulfa (Sulfonamide Antibiotics) (Verified Allergy, Severe, facial swelling , 09/08/16) bupropion (Verified Allergy, Severe, chest pain, 09/08/16) codeine (Verified Allergy, Severe, hives (OK WITH MORPHINE), 09/08/16) latex (Verified Allergy, Unknown, unknown, 09/08/16) nitrofurantoin (Verified Allergy, Unknown, unknown, 09/08/16) Macrolide Antibiotics (Verified Adverse Reaction, Severe, pt only tolerates, 09/08/16) Penicillins (Verified Adverse Reaction, Severe, shaking, 09/08/16) Uncoded Allergies: E-MYCIN ANTIBIOTICS (Adverse Reaction, Severe, pt only tolerates, 12/27/15) Scheduled ([iron]) 27 MG PO DAILY ([[place]]) 1 GM DAILY Alendronate Sodium (Fosamax) 70 Mg Tablet 70 MG PO QW Ascorbic Acid (Vitamin C) 500 Mg Capsule.er 500 MG PO DAILY Aspirin (Aspirin) 81 Mg Tablet 81 MG PO DAILY Atenolol (Atenolol) 25 Mg Tablet 12.5 MG PO DAILY Calcium Carb&Cit/D3/Phytostrol (Citracal D + Heart Health Tab) 1 Each Tablet 1 EACH PO DAILY Cholecalciferol (Vitamin D3) (Vitamin D) 1,000 Unit Capsule 1,000 UNIT PO DAILY Cyanocobalamin (Vitamin B12) 1,000 Mcg Tablet 1,000 MCG PO DAILY Garlic (Garlic) 300 Mg Tablet 300 MG PO DAILY Ginkgo Biloba Extract (Ginkgo Biloba) 120 Mg Capsule 120 MG PO DAILY Lisinopril (Lisinopril) 20 Mg Tablet 20 MG PO DAILY Multivits-Min/FA/Lycopene/Lut (Centrum Silver Tablet) 1 Each Tablet 1 EACH PO DAILY Simvastatin (Simvastatin) 80 Mg Tablet 80 MG PO HS Scheduled PRN Lorazepam (Lorazepam) 0.5 Mg Tablet 0.5 MG PO TID PRN PRN For Anxiety Miscellaneous Medications ([Maxi-hair]) General Time Seen by MD: 09:28 Chief Complaint Other (Hematochezia) Hx Obtained From: Patient Arrived By: Walk-in Sudden in Onset?: No Onset Occurred: 1 - 4 hours ago Symptom Duration: Since onset Associated with: Denies: Abdominal pain, Chest pain, Shortness of breath Pertinent Negative: Pt denies other symptoms Recent Healthcare: No recent hospitalization, Recent doctor visit Past Medical History Past Medical History 1. heart murmur 2. hypertension 3. pneumonia 4. hemorrhoid 5. kidney stones 6. rectal bleed 7. breast cancer Past Surgical History Oophorectomy RFA right leg bilateral breast BX Reports: Appendectomy, Cataract surgery, Hysterectomy, Tonsillectomy Smoking History Current Some Day Smoker, Light Tobacco Smoker Social History Other Social History: Good social support, Local resident Ambulatory Status Independent Review of Systems Flatulence Small BM Full Review of Systems Respiratory: Denies: Shortness of breath Cardiovascular: Denies: Chest pain GI: Reports: Bloody/tarry stool, Denies: Abdominal pain Neurologic: Denies: Lightheaded Complete sys rev & neg: except as marked. Physical Exam Constitutional: Well-developed, well-nourished. Not diaphoretic. Head: Normocephalic and atraumatic. Mouth/Throat: Oropharynx is clear and moist. No oropharyngeal exudate. Eyes: EOM are normal. Pupils are equal, round, and reactive to light. Neck: Supple, no tracheal deviation. Cardiovascular: Normal rate, regular rhythm. Equal and intact distal pulses throughout. No peripheral edema. Good peripheral pulses. Pulmonary/Chest: Effort normal and breath sounds normal. No respiratory distress. Abdominal: Soft. No distension. There is no tenderness, rebound, or guarding. Bowel sounds present. Rectum: Deferred Musculoskeletal: Range of motion grossly intact, moving all extremities. No edema or tenderness appreciated. Neurological: AOx3. Grossly nonfocal exam. Strength and sensation intact and equal to bilateral upper and lower extremities. Skin: Warm and dry, no rashes or pallor appreciated. Psychiatric: Appropriate mood and affect. Behavior appears normal. Vital Signs Vital Signs Date Time Temp Pulse Resp B/P Pulse Ox O2 Delivery O2 Flow Rate FiO2 09/09/16 09:23 36.6 72 16 125/70 99 Room Air Initial VS: Reviewed Interpretation & Diagnostics Lab Results Interpretation Result Diagram: 09/09/16 1005 09/09/16 1005 Test 09/09/16 10:05 09/09/16 11:00 White Blood Count 2.1th/mm3 (3.8-10.1) Red Blood Count 3.67mil/mm3 (3.90-5.20) Hemoglobin 10.8g/dL (12.0-15.6) Hematocrit 33.0% (35.0-46.0) Mean Corpuscular Volume 89.9fL (81-100) Mean Corpuscular Hemoglobin 29.4pg (27.0-35.0) Mean Corpuscular Hemoglobin Concent 32.7% (32.0-37.0) Red Cell Distribution Width 14.2% (12.3-15.4) Platelet Count 126bil/L (150-400) Neutrophils (%) (Auto) 70.3% (40-74) Lymphocytes (%) (Auto) 20.2% (14-46) Monocytes (%) (Auto) 8.5% (4-12) Eosinophils (%) (Auto) 0.5% (0-5) Basophils (%) (Auto) 0% (0-3) Prothrombin Time 10.4sec (8.1-12.5) Prothromb Time International Ratio 0.97ratio Activated Partial Thromboplast Time 28.0sec (22.8-33.0) Sodium Level 140mEq/L (134-144) Potassium Level 4.1mEq/L (3.5-5.2) Chloride Level 103mEq/L (97-108) Carbon Dioxide Level 26mmol/L (18-29) Blood Urea Nitrogen 19mg/dL (8-27) Creatinine 0.79mg/dL (0.57-1.00) Estimat Glomerular Filtration Rate 101mL/min (>59) Glucose Level 108mg/dL (60-99) Calcium Level 9.0mg/dL (8.5-10.1) Magnesium Level 2.1mg/dL (1.6-2.6) Total Bilirubin 0.4mg/dL (0.0-1.2) Aspartate Amino Transf (AST/SGOT) 21U/L (0-50) Alanine Aminotransferase (ALT/SGPT) 11U/L (0-32) Alkaline Phosphatase 44U/L (25-165) Troponin T 0.010ug/L (0.0-0.011) Total Protein 6.3g/dL (6.4-8.4) Albumin 3.9g/dL (3.4-5.0) Urine Color Yellow (YELLOW) Urine Appearance Slightly cloudy Urine pH 6.5 (5.0-8.0) Urine Specific [place] 1.012 (1.003-1.035) Urine Protein Negativemg/dL (NEG,TRACE) Urine Glucose (UA) Negativemg/dL (NEGATIVE) Urine Ketones Negativemg/dL (NEGATIVE) Urine Occult Blood Negative (NEGATIVE) Urine Nitrite Negative (NEGATIVE) Urine Bilirubin Negative (NEGATIVE) Urine Urobilinogen Normalmg/dL (NORMAL) Urine Leukocyte Esterase Large (NEGATIVE) Urine RBC 0-2/hpf (0-2) Urine WBC >50/hpf (0-5) Urine Epithelial Cells Few/hpf (NONE-MOD) Urine Crystals None seen (NONE SEEN) Urine Bacteria Many/hpf (NONE-FEW) Urine Hyaline Casts None/lpf (NONE) Urine Granular Casts None seen (NONE SEEN) Urine Waxy Casts None seen (NONE SEEN) Urine Red Blood Cell Casts None seen (NONE SEEN) Urine White Blood Cell Casts None seen (NONE SEEN) Urine Mucus None seen (None Seen) Urine Trichomonas None seen (NONE SEEN) Urine Yeast None (NONE SEEN) Urinalysis Comment None Urine Culture Reflexed Indicated ECG Interpretation ECG Interpretation: Sinus Rhythm Rate 64 Possible TWI/ flattening in the inferior leads No STEMI Time: 10:47 Interpreted by: ED physician Re-Eval/Medical Decision Med Decision/Clinical Course 76F seen last night, now back w/ continued bleeding from the bottom. Repeat Hgb here is lower than last night; trend from 12 to 11.4 to 10.8 since last night; down from 13.2 a couple of weeks ago. Discussed w/ both oncology and GI account retention representative ; nothing needed from an oncology perspective at this time - GI to scope this afternoon. HDS here in the ED; no need for transfusion emergently at this time. Patient agreeable to plan, no further questions. Time of Eval: 12:14 Patient Status: Condition improved Re-Evaluation/Progress Note: Pt is informed of her lab results and the intended treatment plan. All questions are addressed. She understands and agrees with the treatment plan to admit. Consultation #1: Referral / Consult Name: Raymundo Colby MD Call Returned at: 11:54 Criminology Professor: Will see patient, Agrees with eval, Agrees with plan Note: GI - agrees to consult on the patient Recommends Golytely and scope today Consultation #2: Referral / Consult Name: Justus Dillard DO Call Returned at: 12:14 Criminology Professor: Will see patient, Agrees with eval, Agrees with plan Note: Oncology Consultation #3: Referral / Consult Name: June Villagran DO Consulted With: Hospitalist Criminology Professor: Will see patient, Agrees with eval, Agrees with plan, Accepts admit Counseled Regarding: Diagnosis, Lab results, Need for admission Discharge & Departure Primary Impression: Acute lower GI bleeding Disposition: ADMITTED TO HOSPITAL Discharge Condition All VS Reviewed: Yes Condition: Stable Referrals: NOPCP (PCP) Mahamed Attestation Portions of this note were transcribed by Aubrey Senior. I, Dr. Valera personally performed the history, physical exam and medical decision-making; I reviewed and confirmed the accuracy of the information in the transcribed note. Signed by: Mahamed Valiente, 09/09/16 1243. Ziyad Valera MD Sep 09, 2016 09:48 AUBREY SENIOR Sep 09, 2016 10:22 Ziyad Valrea MD Sep 09, 2016 09:48 AUBREY SENIOR Sep 09, 2016 10:22
[2016-09-09 10:28] LABS: BASOPHILS % (AUTO) 0 % (0-3); EOSINOPHILS % (AUTO) 0.5 % (0-5); MONOCYTES % (AUTO) 8.5 % (4-12); Mean Corpuscular Hemoglobin 29.4 pg (27.0-35.0); Mean Corpuscular Volume 89.9 fL (81-100); NEUTROPHILS % (AUTO) 70.3 % (40-74); Platelet Count 126 bil/L (150-400)
[2016-09-09 10:43] LABS: INR 0.97 ratio
[2016-09-09 10:53] LABS: TROPONIN T 0.01 ug/L (0.0-0.011)
[2016-09-09 11:04] LABS: Magnesium 2.1 mg/dL (1.6-2.6)
[2016-09-09] MEDS ORDERED: Propofol 10 mg/mL 20 mL Inj ONE (11:15)
[2016-09-09] MEDS ORDERED: PEG/Electrolytes 4,000 mL Solution PO ONE (12:00)
[2016-09-09 12:22] LABS: APPEARANCE,URINE SLIGHTLY CLOUDY (CLEAR,HAZY); COLOR,URINE YELLOW (YELLOW); OCCULT BLOOD,URINE NEGATIVE (NEGATIVE); PH,URINE 6.5 (5.0-8.0); UROBILINOGEN,URINE NORMAL (NORMAL)
[2016-09-09] MEDS ORDERED: Ondansetron 2 mg/mL 2 mL Inj IVPUSH PRN (12:55)
[2016-09-09] MEDS ORDERED: Polyethylene Glycol (PEG) 17 Gm Powder PO PRN (12:55)
[2016-09-09] MEDS ORDERED: Alum-Mag Hydrox-Simeth 30 mL Suspension PO PRN (12:55)
--- NOTE | 2016-09-09 12:58 | PCM.HPMED ---
Subjective Date of Service Sep 09, 2016 Primary Provider: Admitting Physician: Primary Care Physician: Carlos Attending Physician: Admit Status: From the Emergency Department Chief Complaint: Lower GI Bleed History of Present Illness: 76 year old female with a history of hemorrhoids, hypertension, rectal bleeding , breast cancer and recent colonoscopy presents to the ED complaining of persistent blood in her stool that began this morning. Patient reports bright red blood clots in her stool and blood in the toilet. She reports excessive flatulence and recent small BM. She was seen in the ED on 09/08 for identical symptoms. Patient received lab work and was discharged in good condition with plan to follow up with her PCP. She presents today because of continued bleeding. Recent colonoscopy in May showed small internal hemorrhoids and moderate sigmoid diverticulosis. In the ER today her hemoglobin is 10.8 and GI is contacted and they want to perform a colonoscopy tonight and they asked for her to prep, which she is doing in the room. In the ER EKG showed T-wave flattening in inferior leads and no ST elev. labs are remarkable for glucose 126, urine showed large leuk white cells greater than 50, and many bacteria. Urine cultures are pending. Records indicate that L August 2016, showed 55-60% and moderate severe MR and moderate MR that left atrial dilation, mild aortic stenosis. 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 She states that she had chemotherapy prior to mastectomy. Her surgery was then followed by chemo/radiation she has completed all this on the August 09 and now she is on oral medications for maintenance therapy. She says that she has had prior transfusions. She has no nausea, she is not light headed but feeling anxious. The time of this interview patient is sitting on the toilet bowl because she is having to go nonstop. She showed me her stool couple of times and the beginning it was more firm with some bbright red blood, and then later on she did not have any blood. She states that she has had a colonoscopy in May 2016 that only showed internal hemorrhoids. She recalls wiping blood on the toilet paper before but nothing like what she has today Allergies Coded Allergies: Adhesives (Verified Allergy, Severe, BLISTERS, 09/08/16) Sulfa (Sulfonamide Antibiotics) (Verified Allergy, Severe, facial swelling , 09/08/16) bupropion (Verified Allergy, Severe, chest pain, 09/08/16) codeine (Verified Allergy, Severe, hives (OK WITH MORPHINE), 09/08/16) latex (Verified Allergy, Unknown, unknown, 09/08/16) nitrofurantoin (Verified Allergy, Unknown, unknown, 09/08/16) Macrolide Antibiotics (Verified Adverse Reaction, Severe, pt only tolerates, 09/08/16) Penicillins (Verified Adverse Reaction, Severe, shaking, 09/08/16) Uncoded Allergies: E-MYCIN ANTIBIOTICS (Adverse Reaction, Severe, pt only tolerates, 12/27/15) Home Medications Iron, Fosamax, aspirin, atenolol 12.5 mg, vitamin D3, B12, lisinopril, simvastatin PMH Hypertension, hemorrhoids, breast cancer Surgical History L mastectomy, we will affect me, RFA right leg, bilateral breast biopsy, appendectomy, cataracts, history of May, tonsillectomy Family History Father and mother both have heart disease Social History Hx Alcohol Use: No Hx Substance Use: No Hx Tobacco Use: Yes (1/2 pack per day since she was in her 20s) Smoking Status: Current Some Day Smoker, Light Tobacco Smoker Exam Vital Signs Vital Sign - Last Date Time Temp Pulse Resp B/P Pulse Ox O2 Delivery O2 Flow Rate FiO2 09/09/16 12:32 36.8 69 14 129/56 97 Room Air Exam General: NAD sitting up on the toilet seat HEENT: NCAT Eyes: [place] conjunctivae. No ptosis, PERRL Neck: No masses, trachea midline, no thyromegaly Lungs: CTA with normal respiratory effort, no crackles or wheezes CV: RRR, no murmurs/rubs/gallops, normal PMI GI: Soft, non-tender with no hepatosplenomegaly MSK: Normal gait and station, no digital cyanosis Skin: Warm and dry. No rash, lesions or ulcers Psych: A&O X3, with appropriate affect Lab and Diagnostics Result Diagram: 09/09/16 1005 09/09/16 1005 Assessment & Plan 76 yo female with PMH of breast cancer s/p chemo radiation and mastectomy, internal hemorrhoids presenting with sudden onset rectal bleeding. Problem #1 lower GI bleed, POA: Bleeding is improving with colonoscopy prerp -- This could be a hemorrhoids -- Type and screen is done -- H&H every 3 hours -- GI consult, Dr. Pantoja is aware. -- Colonoscopy tonight -- GI prophylaxis with Pepcid IV 20 mg BID Chronic Hypertension,a ctive: She took meds this AM -- Continue lisinopril and atenolol home meds in the AM Hyperlipidemia, chronic active -- Continue simvastatin Breast Cancer s/p chemorad and mastectomy: on maintenance therapy -- Will resume home meds in the AM (herceptin until december and anti-estrogen therapy (tamoxifen?) for 5 years) Tobacco abuse, active, chronic -- She declined a nicotine patch due to allergies to tape Disposition: Patient may be discharged to home if colonoscpy reveals no active bleed. Pain Evaluation: Other (she has no pain) Resuscitation Status: CPR: Attempt Resuscitation (her daughter) Time spent 40 min June Villagran DO Sep 09, 2016 12:58
[2016-09-09] MEDS: 0.9% Sodium Chloride 1,000 ML IV SCH (13:07)
--- NOTE | 2016-09-09 18:50 | NUR ---
Transfer/Endo Pt. was transferred from the ED to room 1009 [facility] at about 1315. Pt. arrived in apparent distress, A&Ox3, ARROYO with general weakness. VS stable will continue to monitor. Pt. on bowel prep for an endoscopy this afternoon at ~2000. Pt. has been NPO since 1800. Stools appear more clear and less bloody. Pt. is bed and denies CP and SOB a this time. Pt. is not on tele. Will continue to monitor.
--- NOTE | 2016-09-09 20:39 | PCM.HPANE ---
Patient Data Surgeon Admitting Provider:June Villagran DO Attending Provider:June Villagran DO Primary Care Physician:Carlos Other Provider: Reason for Visit Lower Gi Bleed LOWER GI BLEED Ht/WT & BMI Height (Feet): 5 Height (Inches): 1.00 Weight (Kilograms): 50.910 Body Mass Index 21.00 Allergies Coded Allergies: Adhesives (Verified Allergy, Severe, BLISTERS, 09/08/16) Sulfa (Sulfonamide Antibiotics) (Verified Allergy, Severe, facial swelling , 09/08/16) bupropion (Verified Allergy, Severe, chest pain, 09/08/16) codeine (Verified Allergy, Severe, hives (OK WITH MORPHINE), 09/08/16) latex (Verified Allergy, Unknown, unknown, 09/08/16) nitrofurantoin (Verified Allergy, Unknown, unknown, 09/08/16) Macrolide Antibiotics (Verified Adverse Reaction, Severe, pt only tolerates, 09/08/16) Penicillins (Verified Adverse Reaction, Severe, shaking, 09/08/16) Uncoded Allergies: E-MYCIN ANTIBIOTICS (Adverse Reaction, Severe, pt only tolerates, 12/27/15) Past Anesthesia History Anesthesia History: Denies:: Abnormal Airway, Anesthesia Reactions, Difficult Intubation, Fam Anesthesia Reaction, Fam Malignant Hypertherm, Malignant Hyperthermia Diabetes History Hx Diabetes?: No MRSA MRSA: No Medications Blood Thinner: Aspirin Hypertension Medication: Yes Home Meds Incl Beta Gaetano: Yes Date Beta Gaetano Taken: Sep 09, 2016 Time Beta Gaetano Taken: 07:00 Reported Medications Ascorbic Acid (Vitamin C)500 Mg Capsule.er500 Mg PO DAILY 12/27/15 Multivits-Min/FA/Lycopene/Lut (Centrum Silver Tablet)1 Each Tablet1 Each PO DAILY 12/27/15 Aspirin 81 Mg Alxlto81 Mg PO DAILY Ref 0 12/27/15 Lisinopril 20 Mg Ptvkem76 Mg PO DAILY Ref 0 12/06/15 Alendronate Sodium (Fosamax)70 Mg Umgavv80 Mg PO QW 30 Days Ref 0 08/12/14 Garlic 300 Mg Gnunxl106 Mg PO DAILY 12/06/13 Ginkgo Biloba Extract (Ginkgo Biloba)120 Mg Lthrwnp800 Mg PO DAILY 12/06/13 Cholecalciferol (Vitamin D3) (Vitamin D)1,000 Unit Capsule1,000 Unit PO DAILY # 1 BOTTLE Ref 0 12/06/13 Cyanocobalamin (Vitamin B12)1,000 Mcg Tablet1,000 Mcg PO DAILY 12/06/13 [iron] No Conflict Check27 Mg PO DAILY 12/06/13 Calcium Carb&Cit/D3/Phytostrol (Citracal D + Heart Health Tab)1 Each Tablet1 Each PO DAILY 12/06/13 Atenolol 25 Mg Kgairx21.5 Mg PO DAILY #30 TABLET Ref 0 12/06/13 Simvastatin 80 Mg Nzcmoy80 Mg PO HS 30 Days Ref 0 12/06/13 Discontinued Reported Medications [[place]] No Conflict Check1 Gm DAILY 08/25/16 [Maxi-hair] No Conflict Check 08/25/16 Lorazepam 0.5 Mg Tablet0.5 Mg PO TID PRN For Anxiety Ref 0 06/15/16 History History of ENT Problems?: Yes HEENT History: Positive for:: Cataracts (surgery 2005) Hearing Problem [place]) Denies:: Abnormal Airway Difficult Intubation Dysphagia Glaucoma Sinus Problem TMJ Denture Type: Full- Upper Full- Lower Teeth Condition: Within Normal Limits Hx of Heart Problems?: Yes Cardiovascular History: Positive for:: Chest Pain Heart Murmur (as a child Mod/severe MR per TTE) Hypertension Thrombophlebitis (Veins removed.) Denies:: AICD Atrial Fibrillation Cardiac Surgery Congestive Heart Failure Edema Irregular Heartbeat Pacemaker Valvular Heart Disease (echo 11/2015) Hx of Respiratory Problem?: Yes Respiratory History: Positive for:: Pneumonia Denies:: Asthma COPD Chest Surgery Cough Dyspnea (can walk - limited by leg pain) Emphysema Hemoptysis Oxygen Administration Tuberculosis Use of C-PAP Machine Hx Neurologic Problems?: No Neurological History: Denies:: Alzheimer's Disease CVA Dementia Dizziness Headaches Multiple Sclerosis Parkinson's Disease Seizures Hx of GI Problems?: No Hx of Problems?: Yes Genitourinary History: Positive for:: Kidney Stones Denies:: HX of Hemodialysis Urinary Tract Infection HX of Peritoneal Dialysis: No Female Hx: Positive for:: Problems with Breasts? (right breast ca ) Denies:: Currently Endometriosis Pelvic Inflammatory Skin History: Denies:: History Skin Disorders? Pressure Ulcers Hx Musculoskeletal Problems?: Yes Musculoskeletal History: Denies:: Back Injury Joint Replacement Musculoskeletal Trauma Hx of Psycho/Social Problems?: No Psycho Social History: Denies:: Anxiety Bipolar Disorder Hx Depression Suicide Attempt Hx Surgeries?: Yes (HYST/OOPH,APPY,RFA RT LEG,BILAT BREAST BX,TONSILS,CATARACTS ,YAG LASERS,EXC ) Hx Any Other Health Problems?: Yes Other History: Positive for:: Cancer (BCC, right breast cancer) Hospitalization (cancer treatments, appendectomy) Denies:: Endocrine Disease Thyroid Disease History Blood Transfusions: Positive for:: Accept Blood Products? Blood Transfusions Denies:: Blood Transfuse Reaction Hx Diabetes: No Hx Alcohol Use: NoHx Substance Use: No Smoking Status: Current Some Day Smoker Light Tobacco Smoker Have You Smoked inLast 12 mo: YesApprox How Many Cigarettes/day: 1/2 pk/day Stop/Bang Treated for Sleep Apnea?: No Do You Have a CPAP Machine?: No S-Snoring: Do You Snore Loudly: No T-Tired: feel tired, fatigued: No O-Obsered: Observed not breath: No P-Blood Pressure: treated: No B- Body Mass Index > 35 kg/m2: No A- Age over 50: Yes N- Neck Large Circumference: No G- Gender Male: No SAEED Total Score: 1 SAEED Risk Assessment: Low Risk, <3 Yes Risk Assessment Category Category 1A: Patient has history of documented sleep apnea, and HAS NOT received any narcotic, sedative or anesthesia administration during this stay. Category 1B: Patient has history of documented sleep apnea, and HAS received any narcotic , sedative or anesthesia administration during this stay Category 2: Patient has SUSPECTED Obstructive Sleep Apnea, and HAS received any narcotic , sedative or anesthesia administration during this stay. Category 3: Patient has SUSPECTED Obstructive Sleep Apnea and HAS NOT received narcotic, sedative or anesthesia administration during this stay. Category 4: Outpatient in Procedural Areas with known sleep apnea or who screen positive for High Risk via the STOP/BANG questionnaire. Exam Exam Vital Signs Vital Signs Date Time Temp Pulse Resp B/P Pulse Ox O2 Delivery O2 Flow Rate FiO2 09/09/16 17:03 36.8 66 15 148/77 100 Room Air 09/09/16 13:29 36.4 70 148/75 99 Room Air 09/09/16 13:19 36.8 69 14 129/56 97 Room Air 09/09/16 12:32 36.8 69 14 129/56 97 Room Air General Appearance: Alert, Oriented X3, Cooperative HEENT/AIRWAY: MP 1 Lungs: Clear to Auscultation Heart: Exam Unremarkable Meds/Labs/Diagnostics Admission Meds Current Medications Polyethylene Glycol/ Electrolytes 4000 ml 4,000 ml ONCE ONCE PO Last administered on 09/09/16 12:33; Start 09/09/16 at 12:00; Stop 09/09/16 at 12:01 ; Status DC Sodium Chloride (Normal Saline) 1,000 ml @ 100 mls/hr Q10H IV Last administered on 09/09/16 13:07; Start 09/09/16 at 12:55 Labs Test 09/09/16 10:05 09/09/16 11:00 09/09/16 16:59 White Blood Count 2.1th/mm3 (3.8-10.1) Red Blood Count 3.67mil/mm3 (3.90-5.20) Mean Corpuscular Volume 89.9fL (81-100) Mean Corpuscular Hemoglobin 29.4pg (27.0-35.0) Mean Corpuscular Hemoglobin Concent 32.7% (32.0-37.0) Red Cell Distribution Width 14.2% (12.3-15.4) Platelet Count 126bil/L (150-400) Neutrophils (%) (Auto) 70.3% (40-74) Lymphocytes (%) (Auto) 20.2% (14-46) Monocytes (%) (Auto) 8.5% (4-12) Eosinophils (%) (Auto) 0.5% (0-5) Basophils (%) (Auto) 0% (0-3) Prothrombin Time 10.4sec (8.1-12.5) Prothromb Time International Ratio 0.97ratio Activated Partial Thromboplast Time 28.0sec (22.8-33.0) Sodium Level 140mEq/L (134-144) Potassium Level 4.1mEq/L (3.5-5.2) Chloride Level 103mEq/L (97-108) Carbon Dioxide Level 26mmol/L (18-29) Blood Urea Nitrogen 19mg/dL (8-27) Creatinine 0.79mg/dL (0.57-1.00) Estimat Glomerular Filtration Rate 101mL/min (>59) Glucose Level 108mg/dL (60-99) Calcium Level 9.0mg/dL (8.5-10.1) Magnesium Level 2.1mg/dL (1.6-2.6) Total Bilirubin 0.4mg/dL (0.0-1.2) Aspartate Amino Transf (AST/SGOT) 21U/L (0-50) Alanine Aminotransferase (ALT/SGPT) 11U/L (0-32) Alkaline Phosphatase 44U/L (25-165) Troponin T 0.010ug/L (0.0-0.011) Total Protein 6.3g/dL (6.4-8.4) Albumin 3.9g/dL (3.4-5.0) Urine Color Yellow (YELLOW) Urine Appearance Slightly cloudy Urine pH 6.5 (5.0-8.0) Urine Specific [place] 1.012 (1.003-1.035) Urine Protein Negativemg/dL (NEG,TRACE) Urine Glucose (UA) Negativemg/dL (NEGATIVE) Urine Ketones Negativemg/dL (NEGATIVE) Urine Occult Blood Negative (NEGATIVE) Urine Nitrite Negative (NEGATIVE) Urine Bilirubin Negative (NEGATIVE) Urine Urobilinogen Normalmg/dL (NORMAL) Urine Leukocyte Esterase Large (NEGATIVE) Urine RBC 0-2/hpf (0-2) Urine WBC >50/hpf (0-5) Urine Epithelial Cells Few/hpf (NONE-MOD) Urine Crystals None seen (NONE SEEN) Urine Bacteria Many/hpf (NONE-FEW) Urine Hyaline Casts None/lpf (NONE) Urine Granular Casts None seen (NONE SEEN) Urine Waxy Casts None seen (NONE SEEN) Urine Red Blood Cell Casts None seen (NONE SEEN) Urine White Blood Cell Casts None seen (NONE SEEN) Urine Mucus None seen (None Seen) Urine Trichomonas None seen (NONE SEEN) Urine Yeast None (NONE SEEN) Urinalysis Comment None Urine Culture Reflexed Indicated Hemoglobin 11.5g/dL (12.0-15.6) Hematocrit 35.1% (35.0-46.0) Plan Impression Patient chart reviewed, patient interviewed and anesthestic plan with risks, benefits, and alternatives discussed, and informed consent obtained. ASA Physical Status: ASA3 Severe Disease Anesthetic Plan: MAC Bene/Risks/Altern/Consents: Yes HP Complete Prior to Induction: Yes Oral Henderson DO Sep 09, 2016 20:10
--- NOTE | 2016-09-09 20:47 | PCM.ANEP1 ---
Post Anesthesia PACU Phase 1 Assessment Vital Signs Vital Signs Date Time Temp Pulse Resp B/P Pulse Ox O2 Delivery O2 Flow Rate FiO2 09/09/16 17:03 36.8 66 15 148/77 100 Room Air 09/09/16 13:29 36.4 70 148/75 99 Room Air 09/09/16 13:19 36.8 69 14 129/56 97 Room Air Anesthetic Administered: GA Level of Alertness: Awake, talking ARROYO's with Equal Strength: Yes Pain: No Nausea or Vomiting: No CV Function & Hydration Stable: Yes Airway Device: Oxygen Delivery: Nasal Cannula Lungs: Clear to Auscultation PACU Phase 2 Assessment Complications: No Follow up Care: N/A Patient Instructions Provided: N/A Oral Henderson DO Sep 09, 2016 20:47
[2016-09-09] MEDS ORDERED: Ciprofloxacin Inj 400 MG in IV Premix 1 EACH IV STA (20:50)
[2016-09-09] MEDS ORDERED: metroNIDAZOLE Inj 500 MG in IV Premix 1 EACH IV STA (20:50)
[2016-09-09] MEDS ORDERED: levoFLOXacin Inj 750 MG in IV Premix 1 EACH IV STA (21:03)
[2016-09-09] MEDS ORDERED: 0.9% Sodium Chloride 250 ML ONE (21:23)
--- NOTE | 2016-09-09 21:30 | PCM.ADCARE ---
Advance Care Planning Note Purpose of Encounter: Establish goals of care in the event of sudden cardiac or resp decompensation Parties in Attendance: Patient, her daughter and Dr. Villagran Decisional Capacity: Good Subjective: Patient is a smoker, cancer survivor, HTN hx in apparent good health otherwise. Objective: 76 yo is an advanced age, unclear benefit of CPR Goals of Care Determinations: We have discussed her health hx and what patient would like if she ever needed CPR and intubation. Explained to them what intubation entails and they are ok with family making the decision for patient if she can not be successfully extubated Plan: Patient wants to be full code CODE STATUS: Full code Time Spent Adv.Care Plannin min Adv. Care Plan Documenation: Documented in H&P June Villagran DO Sep 09, 2016 21:30
--- NOTE | 2016-09-09 22:06 | DRSVH ---
PROCEDURE: CT ABDOMEN AND PELVIS WITHOUT CONTRAST ([id number]) INDICATIONS: rule out perforation in cecum post colonoscopy TECHNIQUE: Noncontrast 5 mm thick sections acquired from the diaphragms to the symphysis. 5 mm coronal and sagi ttal reformats were then performed. For radiation dose reduction, the following was used: automated exposure control, adjustment of mA and/or kV according to patient size. COMPARISON: [facility], CT, CT CHEST ABD PELVIS W CON, 12/13/2015, 15:10. FINDINGS: Image quality: Good ABDOMEN: Lung bases: Lung bases are clear of acute infiltrates. There is some scarring at the left lung base. Heart size is normal. Solid organs: Liver and spleen are normal in size. Gallbladder is within normal limits. Pancreas i s normal in contours. No adrenal nodules. Kidneys are normal in size, without hydronephrosis or nep hrolithiasis. There is a heterogeneous structure in the lateral aspect of the left kidney at the midp ole density is relatively low and the appearance is most consistent with a 2 cm angiomyolipoma. There is a cyst inferiorly on the left kidney of approximately 3.5 cm size. Peritoneum and bowel: Unenhanced bowel loops demonstrate normal wall thickness and caliber. No free fluid or air. Colonic diverticula are present. Nodes and vessels: No retroperitoneal or mesenteric adenopathy by size criteria. Aorta and inferior vena cava are normal in caliber. Miscellaneous: No ventral hernias. PELVIS: Genitourinary: Bladder wall thickness is normal. Miscellaneous: No inguinal hernias or adenopathy. Bones: No suspicious bony lesions. The appearance of the sacrum would suggest multiple perineural cy sts/Tarlov type cysts. No vertebral body compression fractures. IMPRESSION: 1. No free or retroperitoneal air. 2. Angiomyolipoma 2 cm size grossly unchanged since previous CT scan in the left kidney. 3. Colonic diverticula without inflammation. Dictated by: Aman Huang M.D. on 09/09/2016 at 21:56 Approved by: Aman Huang M.D. on 09/09/2016 at 22:04
[2016-09-09] MEDS: Famotidine Inj 20 MG in IV Premix 1 EACH IV SCH (23:09)
--- NOTE | 2016-09-10 00:11 | CONS ---
[address] [address] CONSULTATION REPORT PATIENT: BLANE CARRILLO : 1940 MR#: [id number] ADMIT: 09/09/2016 JOB ID: [id number] DATE OF SERVICE: 09/09/2016 CHIEF COMPLAINT: Possible perforation in the cecum. HISTORY OF PRESENT ILLNESS: The patient is a 76-year-old female who was undergoing a colonoscopy tonight by the GI service, Dr. Colby, due to lower GI bleed. During the colonoscopy, an AVM was identified in the cecum. Using the Argon plasma coagulation device, it was felt that a small perforation occurred during the treatment process. Dr. Colby immediately placed three endo-clips on the site of perforation and urgently consulted General Surgery. At this time, the patient is comfortable and denies any abdominal pain. Her vital signs are stable in the endoscopy suite. Her blood pressure is 115/58 with a pulse of 73. She repetitively denies having abdominal pain. Pt has hx of breast CA and is still undergoing postop adjuvant chemotherapy. PAST MEDICAL HISTORY: A colonoscopy in May [address] Quinn, history of breast cancer, status post left mastectomy and right modified radical mastectomy, hypertension, appendectomy, radiofrequency ablation of the right leg, tonsillectomy, cataract surgery, coronary artery disease, hysterectomy, [place]. MEDICATIONS AT HOME: Alendronate, vitamins, baby aspirin, atenolol, vitamin B12, garlic, lisinopril, simvastatin and iron. ALLERGIES: ERYTHROMYCIN, MACROLIDE, PENICILLIN, SULFA, BUPROPION, CODEINE, LATEX, AND NITROFURANTOIN. SOCIAL HISTORY: The patient has retired from the [employer], she is still smoking, she lives in [place]. FAMILY HISTORY: Positive for heart disease. REVIEW OF SYSTEMS: Positive for the lower GI bleed which has been going on for the past two days. PHYSICAL EXAMINATION: The patient is currently in the endoscopy suite. She is awake, and she denies any abdominal pain. Her BMI is 21.2. Head is normocephalic, atraumatic. Neck is supple. Heart is regular. Lungs are clear. Abdomen is nontender to palpation at this time. There is no peritoneal signs. Extremities shows no clubbing and no cyanosis. LABORATORY EXAMINATION: Earlier in the day, showed a white blood count of 2.1, hematocrit 33 and platelet count is 126. Sodium is 140, potassium 4.1, creatinine is 0.79, total bilirubin was 0.4. Her INR was 0.97. These laboratory examinations were all obtained prior to the colonoscopy. ASSESSMENT: This is a 76-year-old female who might have suffered a cecal perforation while undergoing a colonoscopy tonight. A stat CT scan of the abdomen and pelvis will be obtained. The patient will be started on IV antibiotics per Dr. Colby. We will serially examine the patient's abdomen for signs of peritonitis. I will also follow up on the results of her stat CT scan. If she clinically deteriorates, we will take her to the operating room for exploration. [place]
[2016-09-10 00:25] VITALS: BP 147/72; PULSE 73; RESP 16; O2SAT 97
[2016-09-10] MEDS: 0.9% Sodium Chloride 1,000 ML IV SCH ×3 (00:49→18:55)
--- NOTE | 2016-09-10 02:06 | CONS ---
[address] [address] CONSULTATION REPORT PATIENT: BLANE CARRILLO : 1940 MR#: [id number] ADMIT: 09/09/2016 JOB ID: [id number] DATE OF SERVICE: REQUESTING PHYSICIAN: in the emergency department. REASON FOR CONSULTATION: Rectal bleeding. HISTORY OF PRESENTING ILLNESS: The patient is a very pleasant, 76-year-old woman, with a history of breast cancer, who has been treated with Taxotere combined with Herceptin and pertuzumab five cycles, followed by surgery on May 15, 2016. She underwent a bilateral mastectomy and right axillary lymph node dissection. Showed no residual invasive carcinoma of the breast. She has also completed postmastectomy radiation and she is receiving treatment with Herceptin every three weeks. She states that she was apparently well up until yesterday when she had painless rectal bleeding. She did notice bright red blood in the toilet bowl as well as on the toilet paper. She had a colonoscopy for similar symptoms back in May 2016. Colonoscopy at that time showed small internal hemorrhoids and moderate sigmoid diverticulosis. She was seen in the emergency department yesterday and had a CBC done which showed hemoglobin of 12 with a hematocrit of 36.6, and then subsequent repeat several hours later showed a hematocrit of 34.8 with hemoglobin of 11.4. She was subsequently discharged home, with persistent blood in her stool that restarted this morning. The patient was reporting that she was passing bright red blood clots, and she was having increased flatulence. Her initial hemoglobin in the emergency department was 10.8, with a hematocrit of 33. Then subsequently, had stabilized with a hemoglobin of 11.7, hematocrit 34.6 at approximately 1:37, then followed by a hemoglobin of 11.5, hematocrit of 35.1 at 4:59 p.m. Upon my interview with her, the patient was passing bright red blood in the bedside commode. She denied any abdominal pain, nausea, vomiting, fevers, chills, sweats, chest pain, lightheadedness, or shortness of breath. She denies being on any anticoagulants such as warfarin. She denies, except for aspirin, any antiplatelet agents. She does take an 81 mg aspirin daily. PAST MEDICAL HISTORY: Significant for breast cancer, a heart murmur, hypertension. PAST SURGICAL HISTORY: Includes appendectomy, cataract surgery, hysterectomy, tonsillectomy, RFA of the right leg, and oophorectomy. SOCIAL HISTORY: She does smoke several cigarettes a day. She states that she has been a light smoker since the age of 19. She denies any alcohol abuse. HOME MEDICATIONS: Include: 1. Alendronate sodium. 2. Vitamin C 500 mg daily. 3. Aspirin 81 mg daily. 4. Atenolol 12.5 mg daily. 5. Calcium carbonate with citrate and vitamin D and phytosterols. 6. Cyanocobalamin. 7. Garlic tablets. 8. Ginkgo biloba extract. 9. Lisinopril. 10. Multivitamin. 11. Simvastatin. 12. Lorazepam p.r.n. ALLERGIES: PENICILLINS, MACROLIDES, NITROFURANTOIN, LATEX, CODEINE, BUPROPION, SULFA, and ADHESIVES. REVIEW OF SYSTEMS: Her 10 point review of systems is otherwise unremarkable. PHYSICAL EXAMINATION: Her temperature is 36.8, her pulse is 66, blood pressure is 140/77, respiratory rate is 18, O2 saturation is 100% on room air. Generally, she is an elderly-appearing woman, in no apparent distress. She is oriented to person, place, and time. Answers questions appropriately. HEENT: No pallor. No icterus. Oropharynx is clear. Chest exam is clear to auscultation bilaterally. Cardiovascular exam: S1, S2 heard. Abdomen is soft, nontender, nondistended, without hepatosplenomegaly. Extremities without edema. LABORATORY DATA: Shows a normal BMP with the exception of a mildly elevated glucose of 108. Normal LFTs, with the exception of a total protein of 6.3. Her PT was 10.4, INR was 0.97, and PTT was 28. Her initial white blood cell count was 2.1, hemoglobin was 10.8, hematocrit of 33, MCV of 89, platelet count of 126, with 70% neutrophils. No imaging tests to review. ASSESSMENT AND PLAN: A 76-year-old woman with multiple medical problems, presenting with painless rectal bleeding. Her previous colonoscopies have shown hemorrhoids and diverticulosis. However, as the rectal bleeding has been persistent, I discussed with the patient regarding endoscopic evaluation to further evaluate the patient's rectal bleeding. Differential diagnosis for her rectal bleeding could include diverticular bleeding versus arteriovenous malformation versus colonic or rectal ulcer versus, which is less likely, neoplasm considering she had a recent colonoscopy, versus ischemic colitis. I would recommend continuing to follow H and H closely. Please ensure the patient has two peripheral IVs and type and cross and have blood on hold. I do not believe we are dealing with necessarily upper GI bleed, as her BUN is normal and the patient has no upper GI complaints such as abdominal pain, nausea or vomiting. However, if the colonoscopy does not reveal any etiology for bleeding, we will pursue upper endoscopy. This was discussed with her, as well as her daughter at the bedside. They were agreeable to this. Thank you for allowing me to participate in this patient's care. If you have any further questions, please not hesitate to contact me.
--- NOTE | 2016-09-10 03:37 | ENDO ---
[address] [address] ENDOSCOPY PROCEDURE PATIENT: BLANE CARRILLO : 1940 MR#: [id number] ADMIT: 09/09/2016 JOB ID: [id number] DATE: 09/10/2016 PROCEDURE: Colonoscopy. INDICATION: Rectal bleeding. Please see anesthesia report for details regarding ASA classification, Mallampati score, and medications. INSTRUMENT USED: [id number]. PREP QUALITY: Good. PROCEDURE: Details after informed consent was obtained, the patient was brought into the GI suite, where she was placed on oxygen via nasal cannula and monitored with continuous pulse oximeter, telemetry, and blood pressure monitoring. A time-out was performed. Then, she was placed in a left lateral decubitus position and medications were administered for sedation. Digital rectal exam was performed, which was unremarkable. No blood was noted on exam. The colonoscope was then inserted into the rectum and advanced under direct visualization to the cecum, which was identified by the presence of the ileocecal valve and appendiceal orifice. Once the cecum was reached. There appeared to be a 5 to 6 mm what appeared to be an arteriovenous malformation. The area was irrigated with copious amounts of water and suction and no active bleeding was seen. The lesion did appear to nayeli slightly as we observed the lesion. Next, using APC in the right colon settings I decided to treat the lesion. As we 1st applied APC there was charring of the mucosa noted. However, there was a small area of a brisk bleeding noted. This was then again treated with further Argon plasma coagulation application. Following that, I noticed what appeared to be a tiny mucosal defect with what appeared to be fat on the other side. At this point, further APC was stopped. I emergently placed three hemoclips to approximate this area, which I felt was a perforation. Following closure I did consult General Surgery who was able to come to the endoscopy suite and visualize the area where three hemoclips were placed at the site of perforation. The site was irrigated with copious amounts of water. No further bleeding was seen at this site. Next, we withdrew the colon as we suctioned air and quickly tried to examine the colon as we withdrew the colon into the rectum. In the sigmoid colon numerous diverticula a were seen. No evidence of bleeding or old blood was seen in the remainder of the colon. Retroflexed views in the rectum revealed small internal hemorrhoids. IMPRESSION: 1. Cecal arteriovenous malformation status post perforation with the application of atrial premature contraction. Perforation was then approximated with the placement of three hemoclips. 2. Scattered diverticula seen throughout the sigmoid colon. 3. Small internal hemorrhoids. RECOMMENDATIONS: 1. A stat CT scan of the abdomen pelvis to rule out free air. 2. Stat IV antibiotics. 3. N.p.o. 4. Surgery consult has been obtained. The above was discussed with the patient, as well as her daughter and son-in-law. I did inform them that I would up-to-date them once CT scan has been performed.
[2016-09-10] MEDS ORDERED: metroNIDAZOLE Inj 500 MG in IV Premix 1 EACH IV SCH (05:00)
--- NOTE | 2016-09-10 05:00 | NUR ---
GI Denies abdominal pain overnight. No BM or bleeding noted. VSS. Continues NPO except occasional ice chip. H/H trending down - 2 units RBC's on hold in lab. Patient denies dizziness but is tired / fatigued. Daughter lives nearby and her phone # is on the board. Please call her with any changes.
[2016-09-10 05:27] LABS: BASOPHILS % (AUTO) 0 % (0-3); EOSINOPHILS % (AUTO) 0.7 % (0-5); MONOCYTES % (AUTO) 9.3 % (4-12); Mean Corpuscular Hemoglobin 29.4 pg (27.0-35.0); Mean Corpuscular Volume 91.1 fL (81-100); NEUTROPHILS % (AUTO) 58.6 % (40-74); Platelet Count 103 bil/L (150-400)
[2016-09-10 05:50] VITALS: BP 125/64; PULSE 77; RESP 16; O2SAT 95
--- NOTE | 2016-09-10 06:18 | PCM.PNSURG ---
Subjective Visit Information: Reason for Visit Lower Gi Bleed Surgery/Surgery Date Post-Op Day # Date of Admission: Sep 09, 2016 at 13:03 Hospital Day # Subjective: stat CT scan overnight did not show free air. Denies abd pain. Objective Objective Awake in bed Heart-- RR, not tachycardic Abd: nondistended, soft, nontender Vital Sign- Last 8 Hours Date Time Temp Pulse Resp B/P Pulse Ox O2 Delivery O2 Flow Rate FiO2 09/10/16 00:25 36.6 73 16 147/72 97 Room Air Intake and Output- Last 8 Hour 09/10/16 Cumulative From/Thru 07:00 09/09/16 09:23 - 09/10/16 03:00 Intake Total 1000 ml Output Total 0 ml Balance 1000 ml Intake Oral 0 ml IV Total 1000 ml Output Urine Total 0 ml # Bowel Movements 5 Result Diagram: 09/10/16 0515 09/09/16 1005 Assessment & Plan Impression No evidence of cecal perforation based on CT scan and benign physical examination Problems: Plan OK to start clears and advance as tolerated Plan per Hospitalist and GI service Resuscitation Status: CPR: Attempt Resuscitation (her daughter) Jonathan Cedeño MD Sep 10, 2016 06:18
[2016-09-10 09:11] VITALS: BP 116/61; PULSE 83; RESP 16; O2SAT 99
[2016-09-10] MEDS: Famotidine Inj 20 MG in IV Premix 1 EACH IV SCH ×2 (09:23→20:50)
--- NOTE | 2016-09-10 11:06 | NUR ---
DUDLEY signed Addendum: 09/10/16 at 1111 by JAMES LAL SS Inpatient status effective today
--- NOTE | 2016-09-10 11:45 | PCM.PNMED ---
Subjective Date of Service Sep 10, 2016 Subjective No complaints, looking forward to full liquid lunch. Exam Vital Signs Vital Sign - Last Date Time Temp Pulse Resp B/P Pulse Ox O2 Delivery O2 Flow Rate FiO2 09/10/16 09:11 36.4 83 16 116/61 99 Room Air Intake and Output 09/09/16 09/09/16 09/10/16 Cumulative From/Thru 15:00 23:00 07:00 09/09/16 09:23 - 09/10/16 06:57 Intake Total 1000 ml 0 ml 1795 ml 2795 ml Output Total 0 ml 1000 ml 1000 ml Balance 1000 ml 0 ml 795 ml 1795 ml Intake Oral 0 ml 0 ml 0 ml IV Total 1000 ml 1775 ml 2775 ml Tube Irrigant 20 ml 20 ml Output Urine Total 0 ml 1000 ml 1000 ml # Bowel Movements 5 1 6 Exam General: Alert and oriented, no acute distress Heart: Regular Lungs: Clear anteriorly and laterally Abdomen: Soft, non-tender, bowel tones present Extremities: No pedal edema IVs and Medications Medications Reviewed: Medications were reviewed in detail Lab and Diagnostics Result Diagram: 09/10/1651409/10/16514 Assessment & Plan 76 yo female with PMH of breast cancer s/p chemo radiation and mastectomy, internal hemorrhoids presenting with sudden onset rectal bleeding. Problem #1 lower GI bleed, POA: No BM/blood today (S/P bowel prep) -- GI prophylaxis with Pepcid IV 20 mg BID but so far not felt to be upper source -- Colonoscopy 09/09evening, no active bleeding, int hemorrhoids and sigmoid diverticuli but also cecal arteriovenous malformation status post perforation with the application of Argon plasma coagulation. Perforation was then approximated with the placement of three hemoclips. -- started on Levaquin & Flagyl surgery consultation obtained - surgery not felt to be needed and started on clear liquids 09/10, then full liquids per GI -- will DC Flagyl 09/10 -- Hgb still dropping (9.2 this am), has repeat ordered by GI for noon UTI - urine growing > 100,000 GNB -- on abt as above, await ID and sens Chronic Hypertension,a ctive: She took meds this AM -- Continue lisinopril and atenolol home meds in the AM Hyperlipidemia, chronic active -- Continue simvastatin Breast Cancer s/p chemorad and mastectomy: on maintenance therapy -- home meds not yet resumed (herceptin until december and anti-estrogen therapy (tamoxifen?) for 5 years) Tobacco abuse, active, chronic -- She declined a nicotine patch due to allergies to tape Disposition: Patient may be discharged to home if colonoscpy reveals no active bleed. Resuscitation Status: CPR: Attempt Resuscitation (her daughter) Claribel Mejia MD Sep 10, 2016 11:45
[2016-09-10 13:03] VITALS: BP 123/66; PULSE 73; RESP 16; O2SAT 97
[2016-09-10] MEDS: 0.9% Sodium Chloride 250 ML IV SCH ×2 (13:14→13:50)
[2016-09-10] MEDS ORDERED: HepLOK Flush 100 unit/mL 5 mL Inj IVFLUSH PRN (13:15)
[2016-09-10] MEDS ORDERED: Sodium Chloride LOK Flush 10 mL Syringe IVFLUSH PRN ×2 (13:15)
--- NOTE | 2016-09-10 16:18 | NUR ---
Social Work: Initial Assessment D: EMR reviewed. Pt is a 76 y/o female admitted for lower GI bleed per H&P. SW met with pt at bedside to conduct initial assessment. Pt was alert and oriented x3. SW explained role and wrote phone number on white board. SW confirmed pt has completed DPOA/advanced directive ppw provided a copy to the medical center at the hospital. Pt's insurance is Medicare and [employer] Supplemental. Pt stated she scheduled new PCP appointment with Megan Ibanez MD at [facility] in mid-September. Pt has no hx of or a SNF. Pt does not have LTC insurance or VA benefits. Pt is independent with ADLs. Pt does not use any DME. Pt drives. Pt is independent at baseline. Pt lives alone in a single-story home with 2 steps to enter in Van. Pt gave verbal consent to contact daughter/DPOA, Agueda Godinez, for discharge planning. Pt's daughter will provide transport home via POV when pt is medically stable. Pt requested SW updated daughter once discharge time/date is known so daughter can coordinate transportation home. SW does not anticipate any discharge needs at this time but will continue to follow if needs arise. A: Pt who is independent at baseline P: Pt's daughter will provide transport home via POV when pt is medically stable. Pt requested SW updated daughter once discharge time/date is known so daughter can coordinate transportation home. SW does not anticipate any discharge needs at this time but will continue to follow if needs arise. JESSEE Amin Addendum: 09/10/16 at 1623 by SONIA FRANCO Amended: Links added.
[2016-09-10 16:19] VITALS: BP 147/67; PULSE 67; RESP 18; O2SAT 97
--- NOTE | 2016-09-10 18:07 | PCM.PNMED ---
Subjective Date of Service Sep 10, 2016 Subjective Patient without any complaints. She denies any abdominal pain nausea vomiting fevers chills or sweats She had just had a bowel movement before I saw her and I was able to visualize a stool which looked brown and there was no evidence of melena or bright red blood. She has been tolerating full liquid diet. Exam Vital Signs Vital Sign - Last Date Time Temp Pulse Resp B/P Pulse Ox O2 Delivery O2 Flow Rate FiO2 09/10/16 16:19 36.7 67 18 147/67 97 Room Air Intake and Output 09/09/16 09/09/16 09/10/16 Cumulative From/Thru 15:00 23:00 07:00 09/09/16 09:23 - 09/10/16 06:57 Intake Total 1000 ml 0 ml 1795 ml 2795 ml Output Total 0 ml 1000 ml 1000 ml Balance 1000 ml 0 ml 795 ml 1795 ml Intake Oral 0 ml 0 ml 0 ml IV Total 1000 ml 1775 ml 2775 ml Tube Irrigant 20 ml 20 ml Output Urine Total 0 ml 1000 ml 1000 ml # Bowel Movements 5 1 6 Exam Generally she is in no apparent distress and is oriented to person place and time HEENT exam- mild pallor there is no icterus Respiratory exam- clear to auscultation Cardiovascular exam- S1-S2 heard Abdominal exam- soft, nontender, nondistended, bowel sounds appreciated Extremities- no edema present Lab and Diagnostics Result Diagram: 09/10/16 1152 09/10/16 0515 Assessment & Plan Cecal AVM/rectal bleeding -I believe the etiology of her bleeding was a cecal AVM which was treated with the application of APC and placement of 3 hemoclips. Perforation was a suspected following APC however there is no CT evidence of this The patient has no symptoms we will not into new antibiotics and we will advance diet as tolerated. If her hemoglobin should remain stable and she has no further bleeding she could be discharged home tomorrow. Resuscitation Status: CPR: Attempt Resuscitation (her daughter) Raymundo Colby MD Sep 10, 2016 18:07
--- NOTE | 2016-09-10 18:34 | NUR ---
PO Intake/GI Pt. has been tolerating PO intake well with no c/o nausea and vomiting or abdominal pain. Pt. also has not had a bloody stool on shift today and is eager to go home. Pt. ambulated the halls with me this afternoon with no assistance and had a strong steady gait.
[2016-09-10 21:14] VITALS: BP 129/69; PULSE 69; RESP 16; O2SAT 96
[2016-09-10] MEDS ORDERED: levoFLOXacin Inj 750 MG in IV Premix 1 EACH IV SCH (21:30)
--- NOTE | 2016-09-11 02:26 | NUR ---
Sleeping Patient slept throughout shift, with no complaints of pain and or discomfort at this time. Some confusion about ABX order, patient was under impression that she was not to receive any more IV ABX. After rereading orders, it was agreed that the current dose was to be administered.
[2016-09-11] MEDS: 0.9% Sodium Chloride 1,000 ML IV SCH (04:55)
[2016-09-11 04:57] LABS: Mean Corpuscular Hemoglobin 29.6 pg (27.0-35.0); Mean Corpuscular Volume 89.4 fL (81-100)
[2016-09-11 05:40] VITALS: BP 143/59; PULSE 68; RESP 16; O2SAT 95
--- NOTE | 2016-09-11 08:46 | PCM.DIMED ---
Discharge Instructions Date of Service Sep 11, 2016 Dates of Hospitalization Sep 09, 2016 at 13:03 Diet Discharge Diet: No restrictions Activity Discharge Activity: No restrictions Call your provider Call your provider for: Fever or Chills, Bleeding, Other (abdominal pain) Patient Instructions Follow-up with PCP in: 2 weeks Claribel Mejia MD Sep 11, 2016 08:46
[2016-09-11] MEDS ORDERED: CEPH-512 PO (08:48)
--- NOTE | 2016-09-11 08:59 | PCM.DC.MED ---
Discharge Summary Date of Service Sep 11, 2016 Dates of Hospitalization Date of Hospital Admission Sep 09, 2016 at 13:03 Date of Discharge: Sep 11, 2016 Providers: Admitting Physician: June Villagran DO Primary Care Physician: Carlos Attending Physician: June Villagran DO Diagnosis at Time of Discharge Diagnosis at Time of Discharge Lower GI bleed due to a cecal AVM which was treated with the application of APC and placement of 3 hemoclips. Perforation was a suspected following APC however there is no CT evidence of this Klebsiella UTI Consultations Gastroenterology Procedures XRay, CTs & MRIs PROCEDURE: CT ABDOMEN AND PELVIS WITHOUT CONTRAST ([id number]) INDICATIONS: rule out perforation in cecum post colonoscopy TECHNIQUE: Noncontrast 5 mm thick sections acquired from the diaphragms to the symphysis. 5 mm coronal and sagittal reformats were then performed. For radiation dose reduction, the following was used: automated exposure control, adjustment of mA and/or kV according to patient size. COMPARISON: [facility], CT, CT CHEST ABD PELVIS W CON, 12/13/2015, 15:10. FINDINGS: Image quality: Good ABDOMEN: Lung bases: Lung bases are clear of acute infiltrates. There is some scarring at the left lung base. Heart size is normal. Solid organs: Liver and spleen are normal in size. Gallbladder is within normal limits. Pancreas is normal in contours. No adrenal nodules. Kidneys are normal in size, without hydronephrosis or nephrolithiasis. There is a heterogeneous structure in the lateral aspect of the left kidney at the midpole density is relatively low and the appearance is most consistent with a 2 cm angiomyolipoma. There is a cyst inferiorly on the left kidney of approximately 3.5 cm size. Peritoneum and bowel: Unenhanced bowel loops demonstrate normal wall thickness and caliber. No free fluid or air. Colonic diverticula are present. Nodes and vessels: No retroperitoneal or mesenteric adenopathy by size criteria. Aorta and inferior vena cava are normal in caliber. Miscellaneous: No ventral hernias. PELVIS: Genitourinary: Bladder wall thickness is normal. Miscellaneous: No inguinal hernias or adenopathy. Bones: No suspicious bony lesions. The appearance of the sacrum would suggest multiple perineural cysts/Tarlov type cysts. No vertebral body compression fractures. IMPRESSION: 1. No free or retroperitoneal air. 2. Angiomyolipoma 2 cm size grossly unchanged since previous CT scan in the left kidney. 3. Colonic diverticula without inflammation. Dictated by: Aman Huang M.D. on 09/09/2016 at 21:56 Approved by: Aman Huang M.D. on 09/09/2016 at 22:04 Other Diagnostics Colonoscopy with APC Brief History 76 year old female with a history of hemorrhoids, hypertension, rectal bleeding , breast cancer and recent colonoscopy presents to the ED complaining of persistent blood in her stool that began this morning. Patient reports bright red blood clots in her stool and blood in the toilet. She reports excessive flatulence and recent small BM. She was seen in the ED on 09/08 for identical symptoms. Patient received lab work and was discharged in good condition with plan to follow up with her PCP. She presents today because of continued bleeding. Recent colonoscopy in May showed small internal hemorrhoids and moderate sigmoid diverticulosis. In the ER today her hemoglobin is 10.8 and GI is contacted and they want to perform a colonoscopy tonight and they asked for her to prep, which she is doing in the room. In the ER EKG showed T-wave flattening in inferior leads and no ST elev. labs are remarkable for glucose 126, urine showed large leuk white cells greater than 50, and many bacteria. Urine cultures are pending. Records indicate that L August 2016, showed 55-60% and moderate severe MR and moderate MR that left atrial dilation, mild aortic stenosis. 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 She states that she had chemotherapy prior to mastectomy. Her surgery was then followed by chemo/radiation she has completed all this on the August 09 and now she is on oral medications for maintenance therapy. She says that she has had prior transfusions. She has no nausea, she is not light headed but feeling anxious. The time of this interview patient is sitting on the toilet bowl because she is having to go nonstop. She showed me her stool couple of times and the beginning it was more firm with some bbright red blood, and then later on she did not have any blood. She states that she has had a colonoscopy in May 2016 that only showed internal hemorrhoids. She recalls wiping blood on the toilet paper before but nothing like what she has today Hospital Course Cecal AVM/rectal bleeding 76 yo female with PMH of breast cancer s/p chemo radiation and mastectomy, internal hemorrhoids presenting with sudden onset rectal bleeding. Problem #1 lower GI bleed, POA: felt due to cecal AVM treated with APC at colonoscopy 09/09 -- GI prophylaxis with Pepcid IV 20 mg BID but not felt to be upper source -- Colonoscopy 09/09evening, no active bleeding, int hemorrhoids and sigmoid diverticuli but also cecal arteriovenous malformation status post possible perforation with the application of Argon plasma coagulation. Possible perforation was then approximated with the placement of three hemoclips. -- started on Levaquin & Flagyl nd surgery consultation obtained - surgery not felt to be needed and started on clear liquids 09/10, then full liquids per GI -- DC'd Flagyl 09/10 -- Hgb initially still dropping (9.2 09/10 am), but stable since (9.5 on am of DC ) UTI - urine grew Klebsiella -- covered by above Levaquin, will change to oral Keflex at [place] Chronic Hypertension,active: -- Continue lisinopril and atenolol home meds Hyperlipidemia, chronic active -- Continue simvastatin Breast Cancer s/p chemo/rad and mastectomy: on maintenance therapy (which includes one chemo agent q 3wk) -- home meds should be resumed at discharge Tobacco abuse, active, chronic -- She declined a nicotine patch due to allergies to tape Exam Vital Signs (Last) Date Time Temp Pulse Resp B/P Pulse Ox O2 Delivery O2 Flow Rate FiO2 09/11/16 05:40 36.7 68 16 143/59 95 Room Air Exam General: Alert and oriented, no acute distress Heart: Regular Lungs: Clear Abdomen: Soft, non-tender Extremities: No pedal edema Test 09/09/16 10:05 09/09/16 11:00 09/10/16 05:15 09/11/16 04:40 Prothrombin Time 10.4sec (8.1-12.5) Prothromb Time International Ratio 0.97ratio Activated Partial Thromboplast Time 28.0sec (22.8-33.0) Magnesium Level 2.1mg/dL (1.6-2.6) Troponin T 0.010ug/L (0.0-0.011) Urine Color Yellow (YELLOW) Urine Appearance Slightly cloudy Urine pH 6.5 (5.0-8.0) Urine Specific [place] 1.012 (1.003-1.035) Urine Protein Negativemg/dL (NEG,TRACE) Urine Glucose (UA) Negativemg/dL (NEGATIVE) Urine Ketones Negativemg/dL (NEGATIVE) Urine Occult Blood Negative (NEGATIVE) Urine Nitrite Negative (NEGATIVE) Urine Bilirubin Negative (NEGATIVE) Urine Urobilinogen Normalmg/dL (NORMAL) Urine Leukocyte Esterase Large (NEGATIVE) Urine RBC 0-2/hpf (0-2) Urine WBC >50/hpf (0-5) Urine Epithelial Cells Few/hpf (NONE-MOD) Urine Crystals None seen (NONE SEEN) Urine Bacteria Many/hpf (NONE-FEW) Urine Hyaline Casts None/lpf (NONE) Urine Granular Casts None seen (NONE SEEN) Urine Waxy Casts None seen (NONE SEEN) Urine Red Blood Cell Casts None seen (NONE SEEN) Urine White Blood Cell Casts None seen (NONE SEEN) Urine Mucus None seen (None Seen) Urine Trichomonas None seen (NONE SEEN) Urine Yeast None (NONE SEEN) Urinalysis Comment None Urine Culture Reflexed Indicated Neutrophils (%) (Auto) 58.6% (40-74) Lymphocytes (%) (Auto) 30.7% (14-46) Monocytes (%) (Auto) 9.3% (4-12) Eosinophils (%) (Auto) 0.7% (0-5) Basophils (%) (Auto) 0% (0-3) Sodium Level 142mEq/L (134-144) Potassium Level 3.9mEq/L (3.5-5.2) Chloride Level 107mEq/L (97-108) Carbon Dioxide Level 21mmol/L (18-29) Blood Urea Nitrogen 11mg/dL (8-27) Creatinine 0.70mg/dL (0.57-1.00) Estimat Glomerular Filtration Rate 116mL/min (>59) Glucose Level 74mg/dL (60-99) Calcium Level 8.0mg/dL (8.5-10.1) Total Bilirubin 0.4mg/dL (0.0-1.2) Aspartate Amino Transf (AST/SGOT) 18U/L (0-50) Alanine Aminotransferase (ALT/SGPT) 8U/L (0-32) Alkaline Phosphatase 35U/L (25-165) Total Protein 5.1g/dL (6.4-8.4) Albumin 3.3g/dL (3.4-5.0) White Blood Count 1.7th/mm3 (3.8-10.1) Red Blood Count 3.21mil/mm3 (3.90-5.20) Hemoglobin 9.5g/dL (12.0-15.6) Hematocrit 28.7% (35.0-46.0) Mean Corpuscular Volume 89.4fL (81-100) Mean Corpuscular Hemoglobin 29.6pg (27.0-35.0) Mean Corpuscular Hemoglobin Concent 33.1% (32.0-37.0) Red Cell Distribution Width 13.8% (12.3-15.4) Platelet Count 113bil/L (150-400) Discharge Medications Discharge Medications ([iron]) 27 MG PO DAILY (Reported) Alendronate Sodium (Fosamax) 70 Mg Tablet 70 MG PO QW (Reported) Ascorbic Acid (Vitamin C) 500 Mg Capsule.er 500 MG PO DAILY (Reported) Aspirin (Aspirin) 81 Mg Tablet 81 MG PO DAILY (Reported) Atenolol (Atenolol) 25 Mg Tablet 12.5 MG PO DAILY (Reported) Calcium Carb&Cit/D3/Phytostrol (Citracal D + Heart Health Tab) 1 Each Tablet 1 EACH PO DAILY (Reported) Cephalexin (Keflex) 500 Mg Capsule 500 MG PO QID Prescribed by: ZULEIKA CUTLER MD Cholecalciferol (Vitamin D3) (Vitamin D) 1,000 Unit Capsule 1,000 UNIT PO DAILY (Reported) Cyanocobalamin (Vitamin B12) 1,000 Mcg Tablet 1,000 MCG PO DAILY (Reported) Garlic (Garlic) 300 Mg Tablet 300 MG PO DAILY (Reported) Ginkgo Biloba Extract (Ginkgo Biloba) 120 Mg Capsule 120 MG PO DAILY (Reported) Lisinopril (Lisinopril) 20 Mg Tablet 20 MG PO DAILY (Reported) Multivits-Min/FA/Lycopene/Lut (Centrum Silver Tablet) 1 Each Tablet 1 EACH PO DAILY (Reported) Simvastatin (Simvastatin) 80 Mg Tablet 80 MG PO HS (Reported) Followup Plan Discharge Diet: No restrictions Discharge Activity: No restrictions Follow-up with PCP in: 2 weeks Zuleika Cutler MD Sep 11, 2016 08:58
[2016-09-11 09:13] VITALS: BP 150/72; PULSE 79; RESP 18; O2SAT 97
[2016-09-11] MEDS: Famotidine Inj 20 MG in IV Premix 1 EACH IV SCH (09:22)
--- NOTE | 2016-09-11 09:27 | PCM.PNMED ---
Subjective Date of Service Sep 11, 2016 Subjective no abdominal pain, nausea, vomiting or rectal bleeding tolerating regular diet Exam Vital Signs Vital Sign - Last Date Time Temp Pulse Resp B/P Pulse Ox O2 Delivery O2 Flow Rate FiO2 09/11/16 05:40 36.7 68 16 143/59 95 Room Air Intake and Output 09/10/16 09/10/16 09/11/16 Cumulative From/Thru 15:00 23:00 07:00 09/09/16 09:23 - 09/11/16 06:52 Intake Total 883 ml 1736 ml 5414 ml Output Total 1200 ml 1400 ml 3600 ml Balance -317 ml 336 ml 1814 ml Intake Oral 883 ml 600 ml 1483 ml IV Total 1136 ml 3911 ml Tube Irrigant 20 ml Output Urine Total 1200 ml 1400 ml 3600 ml # Bowel Movements 1 1 8 Exam Gen- reading in bed chest exm - clear bilaterally CVS- S1 and S2 heard Abdomen--soft, non distended, non tender, bowel sounds present EXT- no edema Lab and Diagnostics Result Diagram: 09/11/16 0440 09/10/16 0515 X-Rays, CTs and MRIs PROCEDURE: CT ABDOMEN AND PELVIS WITHOUT CONTRAST ([id number]) INDICATIONS: rule out perforation in cecum post colonoscopy TECHNIQUE: Noncontrast 5 mm thick sections acquired from the diaphragms to the symphysis. 5 mm coronal and sagittal reformats were then performed. For radiation dose reduction, the following was used: automated exposure control, adjustment of mA and/or kV according to patient size. COMPARISON: Merged With [facility], CT, CT CHEST ABD PELVIS W CON, 12/13/2015, 15:10. FINDINGS: Image quality: Good ABDOMEN: Lung bases: Lung bases are clear of acute infiltrates. There is some scarring at the left lung base. Heart size is normal. Solid organs: Liver and spleen are normal in size. Gallbladder is within normal limits. Pancreas is normal in contours. No adrenal nodules. Kidneys are normal in size, without hydronephrosis or nephrolithiasis. There is a heterogeneous structure in the lateral aspect of the left kidney at the midpole density is relatively low and the appearance is most consistent with a 2 cm angiomyolipoma. There is a cyst inferiorly on the left kidney of approximately 3.5 cm size. Peritoneum and bowel: Unenhanced bowel loops demonstrate normal wall thickness and caliber. No free fluid or air. Colonic diverticula are present. Nodes and vessels: No retroperitoneal or mesenteric adenopathy by size criteria. Aorta and inferior vena cava are normal in caliber. Miscellaneous: No ventral hernias. PELVIS: Genitourinary: Bladder wall thickness is normal. Miscellaneous: No inguinal hernias or adenopathy. Bones: No suspicious bony lesions. The appearance of the sacrum would suggest multiple perineural cysts/Tarlov type cysts. No vertebral body compression fractures. IMPRESSION: 1. No free or retroperitoneal air. 2. Angiomyolipoma 2 cm size grossly unchanged since previous CT scan in the left kidney. 3. Colonic diverticula without inflammation. Dictated by: Aman Huang M.D. on 09/09/2016 at 21:56 Approved by: Aman Huang M.D. on 09/09/2016 at 22:04 Additional Diagnostics Colonoscopy with APC Assessment & Plan Cecal AVM/rectal bleeding -s/p APC and hemoclip placement - no further bleeding, H and H stable -during cecal perforation was suspected however CT showed no evidence of perforation and patient asymptomatic -Ok to discharge from GI standpoint. -follow up in GI clinic as needed Resuscitation Status: CPR: Attempt Resuscitation (her daughter) Raymundo Colby MD Sep 11, 2016 09:27
--- NOTE | 2016-09-11 10:30 | NUR ---
Social Work: Readiness for Discharge D: EMR reviewed. Pt is on day 2 of hospitalization. Per Per MD in AM multi-disciplinary rounds, pt is medically stable and ready to discharge today. Pt requested SW to contact pt's daughter Agueda to help coordinate discharge transportation. SW placed T/C to Agueda and left voicemail requesting return T/C. SW does not anticipate any discharge needs but will continue to follow if needs arise. A: Pt who is independent at baseline. P: Pt will transport home via POV with daughter today. SW does not anticipate any discharge needs but will continue to follow if needs arise. JESSEE Amin
--- NOTE | 2016-09-11 11:20 | PCM.PNSURG ---
Subjective Date of Service: Sep 11, 2016 Date of Service: Sep 11, 2016 Visit Information: Reason for Visit Lower Gi Bleed Surgery/Surgery Date Post-Op Day # Date of Admission: Sep 09, 2016 at 13:03 Hospital Day # 3 Subjective: Pt seen at bedside. Smiling and feeling good. Denies n/v. Denies BRBPR since Sat. Postop General: No Complaints, No Shortness of Breath, No Chest Pain Gastrointestinal: Tolerating Oral Feedings, No N/V, Passing Stool, Normal Bowel Movement Pain Management: PO Objective Vital Sign- Last 8 Hours Date Time Temp Pulse Resp B/P Pulse Ox O2 Delivery O2 Flow Rate FiO2 09/11/16 09:13 36.6 79 18 150/72 97 Room Air 09/11/16 05:40 36.7 68 16 143/59 95 Room Air Intake and Output- Last 8 Hour 09/11/16 Cumulative From/Thru 07:00 09/09/16 09:23 - 09/11/16 06:52 Intake Total 1736 ml 5414 ml Output Total 1400 ml 3600 ml Balance 336 ml 1814 ml Intake Oral 600 ml 1483 ml IV Total 1136 ml 3911 ml Tube Irrigant 20 ml Output Urine Total 1400 ml 3600 ml # Bowel Movements 1 8 General: Alert, Cooperative, No Acute Distress Lungs: Clear to Auscultation Heart: Regular Rate/Rhythm Abdomen: Benign, Soft, Non-tender Result Diagram: 09/11/16 0440 09/10/16 0515 Assessment & Plan Impression Good recovery s/p blood in stool. Problems: Plan May discharge from surgical perspective. Management per medicine. Resuscitation Status: CPR: Attempt Resuscitation (her daughter) Archie Ibanez PA-C Sep 11, 2016 11:20
--- NOTE | 2016-09-11 11:40 | NUR ---
Discharge Pt. discharged to home and took all her belongings from her room 100[address] [facility]. Pt. was given educational material on new Abx prescription cephalexin as well as GI bleed. Pt. was instructed to call and make an appointment with her PCP in 2 weeks and she stated she would call. Pts. daughter came and picked her up.
[2016-09-12] MEDS ORDERED: levoFLOXacin Inj 750 MG in IV Premix 1 EACH IV SCH (20:30)
== END 2016-09-11 11:40 | disposition home or self-care (01) | DRG 378 ==
LOC: SED 09:17 → OSC 13:03 → INTOOBSV 13:03 → OBSVTOIN 13:03
PROVIDERS: ADMIT Family Medicine; ATTEND Family Medicine
PROC: 0DJD8ZZ Inspection of Lower Intestinal Tract, Via Natural or Artificial Opening Endoscopic (ICD-10-PCS; 2016-09-09)
PROC: 0W3P8ZZ Control Bleeding in Gastrointestinal Tract, Via Natural or Artificial Opening Endoscopic (ICD-10-PCS; principal; 2016-09-09 19:00)
DX: K55.21 Angiodysplasia of colon with hemorrhage (principal); N39.0 Urinary tract infection, site not specified; K57.30 Diverticulosis of large intestine without perforation or abscess without bleeding; Z85.3 Personal history of malignant neoplasm of breast; Z79.82 Long term (current) use of aspirin; F17.210 Nicotine dependence, cigarettes, uncomplicated; Z90.12 Acquired absence of left breast and nipple; Z92.21 Personal history of antineoplastic chemotherapy; Z92.3 Personal history of irradiation; I10 Essential (primary) hypertension; E78.5 Hyperlipidemia, unspecified; Z51.5 Encounter for palliative care; K64.8 Other hemorrhoids; B96.1 Klebsiella pneumoniae [K. pneumoniae] as the cause of diseases classified elsewhere